=== PATIENT | male | born 1950 | race Caucasian/White ===

== ENCOUNTER → 2017-07-06 | Outpatient (REF) | payer MEDICARE ==
[2017-07-06 14:24] LABS: ADD MORPHOLOGY? YES; BASO # 0.1 K/mm3 (0.0-0.2); BASO % 1.6 % (0.0-1.0); EOS # 0.1 K/mm3 (0.0-0.50); EOS % 1.5 % (0.0-3.0); LARGE UNSTAINED CELL # 0.2 K/mm3 (0.0-0.4); LARGE UNSTAINED CELL % 4.5 % (0.0-4.0); LYMPH # 2.3 K/mm3 (1.5-4.5); LYMPH % 39.7 % (24.0-44.0); MEAN CORPUSCULAR HEMOGLOBIN 37.7 pg (27.0-33.0); MEAN CORPUSCULAR HGB CONC 32.7 g/dl (32.0-36.5); MEAN CORPUSCULAR VOLUME 115.3 fl (80.0-96.0); MONO # 0.3 K/mm3 (0.0-0.8); MONO % 5.7 % (0.0-5.0); NEUTROPHILS # 2.5 K/mm3 (1.8-7.7); NEUTROPHILS % 47.1 % (36.0-66.0); PLATELET COUNT, AUTOMATED 112 k/mm3 (150-450); WHITE BLOOD COUNT 5.3 K/mm3 (4.0-10.0)
[2017-07-06 14:26] LABS: FOLATE > 24.0 NG/ML; VITAMIN B12 LEVEL 1307 PG/ML
[2017-07-06 15:20] LABS: ERYTHROCYTE SEDIMENTATION RATE 33 mm/hr (0-20)
[2017-07-06 15:33] LABS: ANISOCYTOSIS 1+
[2017-07-06 15:47] LABS: ALBUMIN 2.9 GM/DL (3.2-5.2); ALBUMIN/GLOBULIN RATIO 0.67 (1.00-1.93); ALKALINE PHOSPHATASE 135 U/L (45-117); ALT/SGPT 40 U/L (12-78); ANION GAP 14 MEQ/L (8-16); AST/SGOT 63 U/L (15-37); BILIRUBIN,TOTAL 4.3 MG/DL (0.2-1.0); BLOOD UREA NITROGEN 12 MG/DL (7-18); CALCIUM LEVEL 8.8 MG/DL (8.8-10.2); CARBON DIOXIDE LEVEL 23 MEQ/L (21-32); CHLORIDE LEVEL 105 MEQ/L (98-107); CREATININE FOR GFR 0.88 MG/DL (0.70-1.30); GLOMERULAR FILTRATION RATE > 60.0 (>49); GLUCOSE, FASTING 188 MG/DL (80-110); POTASSIUM SERUM 3.8 MEQ/L (3.5-5.1); SODIUM LEVEL 142 MEQ/L (136-145); TOTAL PROTEIN 7.2 GM/DL (6.4-8.2)
[2017-07-08 12:02] LABS: ALBUMIN 3.28 GM/DL (3.29-5.55); ALBUMIN % 45.5 % (55.8-66.1); GAMMA GLOBULIN % 29.1 % (11.1-18.8)
[2017-07-09 08:07] LABS: SJOGREN'S ANTI SS-A <0.2 AI (0.0-0.9); SJOGREN'S ANTI SS-B <0.2 AI (0.0-0.9); VITAMIN E LEVEL 22.2 mg/L (5.3-17.5)
== END ==
LOC: M LABNEURO 13:12
PROVIDERS: ATTEND Psychiatry & Neurology Neurology
DX: R25.1 Tremor, unspecified (principal); R41.0 Disorientation, unspecified

== ENCOUNTER 2020-03-05 20:23 | Inpatient (IN) | payer MEDICARE, MEDICAID ==
[~2020-03-05] VITALS: Ht 190.5 cm; Wt 102.5 kg
[2020-03-05] MEDS ORDERED: ACETAMINOPHEN TAB 650MG DOSE (2X325MG) PO PRN (20:45)
[2020-03-05] MEDS ORDERED: MOM 30ML SUSPENSION UDC PO PRN (20:45)
[2020-03-05] MEDS ORDERED: MORPHINE 2 MG/ML 1ML VIAL (J2270) IV PRN (21:00)
[2020-03-05] MEDS ORDERED: traMADol 50 MG TAB PO PRN (21:00)
[2020-03-05] MEDS ORDERED: metroNIDAZOLE 500 MG in IV 1 EA IV SCH (21:00)
[2020-03-05] MEDS ORDERED: cefTRIAXone SOD 1 GM in D5W MINI-BAG PLUS 50 ML IV SCH (21:00)
[2020-03-05 21:10] VITALS: BP 150/78
[2020-03-05] MEDS ORDERED: FURO20TA2 PO (21:33)
[2020-03-05] MEDS ORDERED: LOTR10CA PO (21:33)
[2020-03-05] MEDS ORDERED: XIFA550T PO (21:33)
[2020-03-05] MEDS ORDERED: CYCL-707 PO (21:33)
[2020-03-05] MEDS ORDERED: LACT10SO29 PO (21:33)
[2020-03-05] MEDS ORDERED: EZET10TA21 PO (21:33)
[2020-03-05] MEDS ORDERED: POTA10TA16 PO (21:33)
[2020-03-05] MEDS ORDERED: ESOM1CAP5 PO (21:33)
[2020-03-05] MEDS ORDERED: METO25TA4 PO (21:33)
[2020-03-05 21:54] LABS: BASO % 0.5 % (0.0-1.0); EOS % 0.4 % (0.0-3.0); HEMATOCRIT 35.9 % (42.0-52.0); HEMOGLOBIN 12.3 g/dl (13.5-17.5); LYMPH % 12.8 % (24.0-44.0); MEAN CORPUSCULAR HEMOGLOBIN 38.8 pg (27.0-33.0); MEAN CORPUSCULAR HGB CONC 34.3 g/dl (32.0-36.5); MEAN CORPUSCULAR VOLUME 113.2 fl (80.0-96.0); MONO % 11.9 % (0.0-5.0); NEUTROPHILS # 5.9 10^3/uL (1.5-8.5); NEUTROPHILS % 73.6 % (36.0-66.0); PLATELET COUNT, AUTOMATED 147 10^3/uL (150-450); RED BLOOD COUNT 3.17 10^6/uL (4.30-6.10)
[2020-03-05] MEDS: NS 1,000 ML IV SCH (22:02)
[2020-03-05 22:04] LABS: INR 2.45; PROTHROMBIN TIME 26.5 SECONDS (11.8-14.0)
[2020-03-05 22:13] LABS: ALBUMIN 2.5 GM/DL (3.2-5.2); ALT/SGPT 34 U/L (12-78); BILIRUBIN,TOTAL 8.4 MG/DL (0.2-1.0); BLOOD UREA NITROGEN 14 MG/DL (7-18); CALCIUM LEVEL 8.2 MG/DL (8.8-10.2); CARBON DIOXIDE LEVEL 25 MEQ/L (21-32); CHLORIDE LEVEL 107 MEQ/L (98-107); ETHYL ALCOHOL (ETHANOL) < 0.003 % (0.000-0.010); GLOMERULAR FILTRATION RATE > 60.0 (>49); GLUCOSE, FASTING 160 MG/DL (70-100); LIPASE 512 U/L (73-393); MAGNESIUM LEVEL 1.5 MG/DL (1.8-2.4); POTASSIUM SERUM 4.3 MEQ/L (3.5-5.1); SODIUM LEVEL 138 MEQ/L (136-145); TOTAL PROTEIN 6.1 GM/DL (6.4-8.2)
--- NOTE | 2020-03-05 23:23 | REPVR ---
PROCEDURE INFORMATION: Exam: US Duplex Left Lower Extremity Veins, Limited Exam date and time: 03/05/2020 11:12 PM Age: 70 years old Clinical indication: Edema, localized; Lower extremity, left; Additional info: Rule out dvt TECHNIQUE: Imaging protocol: Real-time Duplex ultrasound of the Left Lower Extremity with 2-D brown scale, color Doppler flow and spectral waveform analysis with image documentation. Limited exam focused on the left lower extremity veins. COMPARISON: No relevant prior studies available. FINDINGS: Left deep veins: Unremarkable. The common femoral, femoral, proximal profunda femoral and popliteal veins are patent without thrombus. Normal Doppler waveforms. Normal compressibility and/or augmentation response. Left superficial veins: Unremarkable. Saphenofemoral junction is patent without thrombus. Soft tissues: Unremarkable. IMPRESSION: No DVT of the left lower extremity. Electronically signed by: Paul Meyer On 03/05/2020 23:23:32 PM
[2020-03-05 23:31] LABS: BILIRUBIN,DIRECT 3.2 MG/DL (0.0-0.2)
[2020-03-05] MEDS: PIPERACILLIN/TAZOBACTAM SOD 3.375 GM in D5W MINI-BAG PLUS 50 ML IV SCH (23:57)
[2020-03-06] MEDS: MAG SULF 1GM/100ML (MAG RUN) 1 GM in IV 1 EA IV SCH ×3 (00:30→02:40)
[2020-03-06 02:31] LABS: HEMATOCRIT 31.2 % (42.0-52.0); HEMOGLOBIN 10.6 g/dl (13.5-17.5); MEAN CORPUSCULAR HEMOGLOBIN 38.8 pg (27.0-33.0); MEAN CORPUSCULAR VOLUME 114.3 fl (80.0-96.0); PLATELET COUNT, AUTOMATED 118 10^3/uL (150-450); RED BLOOD COUNT 2.73 10^6/uL (4.30-6.10); WHITE BLOOD COUNT 7.5 10^3/uL (4.0-10.0)
[2020-03-06 02:51] LABS: ALT/SGPT 29 U/L (12-78); BLOOD UREA NITROGEN 12 MG/DL (7-18); CALCIUM LEVEL 7.7 MG/DL (8.8-10.2); CARBON DIOXIDE LEVEL 27 MEQ/L (21-32); CHLORIDE LEVEL 108 MEQ/L (98-107); CREATININE FOR GFR 0.68 MG/DL (0.70-1.30); GLOMERULAR FILTRATION RATE > 60.0 (>49); GLUCOSE, FASTING 123 MG/DL (70-100); SODIUM LEVEL 141 MEQ/L (136-145); TOTAL PROTEIN 4.9 GM/DL (6.4-8.2)
--- NOTE | 2020-03-06 04:25 | HPEPDOC ---
General Date of Admission Mar 05, 2020 at 21:10 Date of Service: Mar 05, 2020 Attending Physician: DRE HARPER MD Chief Complaint The patient is a 70-year-old male admitted with a reason for visit of Choledocholithiasis, Pancreatitis. History of Present Illness HPI: This is a 70 yo M poor-historian, reported history of LIU cirrhosis diagnosed last year managed by PCP, chronically on Lactulose & Rifaximin. He is a direct transfer from [facility] for GI intervention for possible ERCP. He initially presented to [facility] for decreased appetite and constant dull abd pain worse on the right flank, nonradiating, without aggravating or alleviating factors. His symptoms began 1 week ago and have been gradually worsening since then. He also noted increased jaundice and pale-appearing stools. He admits to having missed doses of medication, but unsure how long and which medications were missed. His labs at that time revealed lactate 4.5, ammonia 112, T. Bili 9.9, D. Bili 3.7, AST/ALT 51/36, Alk [id number], Lipase 720. WBC 7.3, nml H&H. In [facility], CT abd/pelvis revealed: Small amount of ascites. No hepatic mass or biliary dilatation. Gallstones and gallbladder distention without gallbladder wall thickening. Inflammatory changes adjacent to the rectum consistent with proctitis. Sigmoid colon diverticulosis without diverticulitis. 3.2 cm abdominal aortic aneurysm without aneurysmal rupture. In [facility], MRCP noted: mild CBD dilatation up to 9.7 mm, 4 mm calculus in the distal CBD. No intrahepatic biliary dilatation or hepatic mass or pancreatic mass or pancreatitis. Cirrhotic changes of liver with ascites. Gallstones and g allbladder distention without gallbladder wall thickening or pericholecystic inflammation. He received IVF & Ceftriaxone & Flagyl x1 doses, and thereafter directly admitted to [facility] for further care. On admission, he has no complaints besides continued right sided abd pain. Is noted to be resting comfortably in bed and hemodynamically stable. Has no other complaints. GI has been consulted; Dr. Katherine barajas will arrange for ERCP. Of note, he was reportedly at [facility] just a week prior after sustaining a mechanical fall at home and per the pt, imaging was negative for fracture and dislocation. Pt reports he was sent home to monitor the left leg, which no longer hurts him, but is noted to have significant bruising. He also reports he had urinary retention and was sent home with a Hernandez catheter to f/u outpatient with Urology, which he has not done yet. 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 Admits chills HEENT: Denies headache, dysphagia, odynophagia. Admits yellowing of eyes Skin: Denies any rashes or lesions. Admits jaundice Pulmonary: Denies dyspnea, cough, wheezing Cardiac: Denies chest pain, palpitations, orthopnea, PND, edema, lightheadedness GI: Denies vomiting or blood loss or constipation. Admits nausea, abdominal pain, harry-colored stools, dark urine. Admits decreased po intake & decreased appetite : Denies dysuria, hematuria. Admits to urinary retention with recently placed Hernandez MSK: Denies new pains or weakness Neurologic: Denies new numbness/tingling. Admits memory issues at baseline PHYSICAL: General exam: A&O x3, NAD, resting comfortably HEENT: NCAT, EOMI, scleral icterus present, dry mucous membranes, neck supple Cardiac: RRR, normal S1 & S2, 2/6 systolic murmur, no edema Respiratory: CTAB, good air exchange, no w/r/r Abdomen: soft, ND, normoactive bowel sounds, no appreciable masses or splenomegaly. Tender to palpation more periumbilically to the right. No rebound, guarding, rigidity Extremity: 2+ radial & dorsalis pedis pulses, calf tenderness LLE Skin: warm, dry, no visible rash. Jaundiced throughout. LLE with extensive bruising, skin discoloration, and nontender swelling from recent fall, pocket of swelling supra-medial to left ankle Msk: strength 5/5 x4, normal tone & nurse school strength Neuro: normal speech, no focal deficits. Slow to answer, but answers accurately LABORATORY DATA, MICROBIOLOGY: Please see below. ASSESSMENT AND PLAN: This is a 70-yo M direct admit from [facility] due to choledocolithiasis & pancreatitis, likely requiring ERCP intervention. 1. Jaundice 2/2 Choledocolithiasis - Gradually worsening last 1 week - Associated n/v abd pain, decreased appetite, harry-colored stools - At [facility]: T. Bili 9.9, D. Bili 3.7, AST/ALT 51/36, Alk [id number] - MRCP at [facility]: mild CBD dilatation up to 9.7 mm, 4 mm calculus in the distal CBD. - Hepatitis panel pending - GI Dr. Gu consulted, appreciate input: MRCP discussed. NPO after midnight for pending ERCP 03/06/20 2. Gallstone Pancreatitis - Lipase 720 at [facility] with abd pain - Pt tolerating po intake - IVF with monitoring lfuid status, suni reported hx of CHF - Pain control meds on board - Pending ERCP as above 3. Possible proctitis - Abdominal pain with chills and decreased appetite, nausea and vomiting - CT abdomen pelvis noted inflammatory changes adjacent to the rectum consistent with proctitis - Started on empiric Zosyn, s/p Ceftriaxone & Flagyl x1 at [facility] - Monitor I/O, bowel mvmts 4. Murmur - Pt denies cardiac hx or prior murmurs - Cardiac markers negative, EKG on admission in NSR in 70s with left axis deviation, no ST-T abnormalities - Hemodynamically stable with no decompensation on exam - Echo ordered 5. Social living situation - Per staff, pts sister had called to relay concerns about his girlfriend at home mismanaging his meds and sister having to call Adult Protective Services in past - PFS consulted 6. Recurrent falls with LLE redness / warmth - possible cellulitis - Mechanical fall last week, reportedly negative for fx or dislocation at [facility] - Left LE Doppler ordered r/u DVT. No wounds or drainage - MRSA PCR negative - c/w Antibiotics noted above - PT/OT, fall risk 7. Urinary retention - [facility] to f/u o/p with Urology, which he has not yet - due to infection risk, remove Hernandez and monitor I/O - bladder scan as needed & straight cath 8. Hypomag - Supplemented, monitor For the remainder of his chronic medical conditions mentioned above, home meds r esumed. Antihypertensives on hold given NPO on IVF, but BBlocker resumed for HR control. DVT prophylaxis: mechanical, heparin sc DISPOSITION: admit to hospital. GI consulted, pending ERCP. NPO after midnight. Home Medications Scheduled Amlodipine Besylate/Benazepril (Lotrel 10-20 mg Capsule) 1 Each Capsule, 1 CAP PO DAILY, (Reported) Cyclobenzaprine HCl (Cyclobenzaprine HCl) 10 Mg Tablet, 10 MG PO QHS, (Reported) Esomeprazole Magnesium (Esomeprazole Magnesium) 40 Mg Capsule.dr, 40 MG PO DAILY, (Reported) Ezetimibe (Ezetimibe) 10 Mg Tablet, 10 MG PO DAILY, (Reported) Furosemide (Furosemide) 20 Mg Tablet, 20 MG PO DAILY, (Reported) Lactulose (Lactulose) 10 Gm/15 Ml Solution, 30 ML PO TID, (Reported) Metoprolol Tartrate (Metoprolol Tartrate) 25 Mg Tablet, 25 MG PO BID, (Reported) Potassium Chloride (Potassium Chloride) 10 Meq Tab.er.prt, 20 MEQ PO DAILY, (Reported) Rifaximin (Xifaxan) 550 Mg Tablet, 550 MG PO BID, (Reported) Allergies Coded Allergies: No Known Allergies (Verified Allergy, Unknown, 03/05/20) A-FIB/CHADSVASC A-FIB History Current/History of A-Fib/PAF?: No Vital Signs Vital Signs Date Time Temp Pulse Resp B/P (MAP) Pulse Ox O2 Delivery O2 Flow Rate FiO2 03/05/20 21:10 97.8 90 19 150/78 (102) 94 Room Air Laboratory Data Labs 24H Laboratory Tests 2 03/05/20 21:29: Immature Granulocyte % (Auto) 0.8, Neutrophils (%) (Auto) 73.6H, Lymphocytes (%) (Auto) 12.8L, Monocytes (%) (Auto) 11.9H, Eosinophils (%) (Auto) 0.4, Basophils (%) (Auto) 0.5, Neutrophils # (Auto) 5.9, Lymphocytes # (Auto) 1.0L, Monocytes # (Auto) 1.0H, Eosinophils # (Auto) 0.0, Basophils # (Auto) 0.0, Nucleated Red Blood Cells % (auto) 0.0, Prothrombin Time 26.5H, Prothromb Time International R atio 2.45, Anion Gap 6L, Glomerular Filtration Rate > 60.0, Lactic Acid Level 3.1*H, Calcium Level 8.2L, Magnesium Level 1.5L, Total Bilirubin 8.4H, Direct Bilirubin 3.2H, Aspartate Amino Transf (AST/SGOT) 42H, Alanine Aminotransferase (ALT/SGPT) 34, Alkaline Phosphatase 148H, Total Protein 6.1L, Albumin 2.5L, Albumin/Globulin Ratio 0.69L, Lipase 512H, Ethyl Alcohol Level < 0.003 03/05/20 21:35: Ammonia 56H 03/05/20 22:34: Urine Color YEISON, Urine Appearance HAZY, Urine pH 6.0, Urine Specific [place] 1.034, Urine Protein 1+H, Urine Glucose (UA) NEGATIVE, Urine Ketones NEGATIVE, Urine Blood 3+H, Urine Nitrite NEGATIVE, Urine Bilirubin NEGATIVE, Urine U robilinogen 4.0H, Urine Leukocyte Esterase TRACEH, Urine WBC (Auto) 8H, Urine RBC (Auto) TNTCH, Urine Hyaline Casts (Auto) 0, Urine Bacteria (Auto) NEGATIVE, Urine Squamous Epithelial Cells 0, Urine Sperm (Auto) 03/06/20 00:35: Methicillin-Resist S.aureus DNA PCR NOT DETECTED 03/06/20 02:16: Nucleated Red Blood Cells % (auto) 0.0, Anion Gap 6L, Glomerular Filtration Rate > 60.0, Lactic Acid Followup at 4 Hours 2.2*H, Calcium Level 7.7L, Magnesium Level 1.8, Total Bilirubin 7.0H, Aspartate Amino Transf (AST/SGOT) 33, Alanine Aminotransferase (ALT/SGPT) 29, Alkaline Phosphatase 119H, Total Protein 4.9L, Albumin 2.0L, Albumin/Globulin Ratio 0.69L CBC/BMP Laboratory Tests 03/05/20 21:29 03/06/20 02:16 Microbiology Microbiology 03/05/20 Urine Culture, Received Pending 03/05/20 Blood Culture, Received Pending 03/05/20 Blood Culture, Received Pending Plan / VTE VTE Prophylaxis Ordered?: Yes GME ATTESTATION GME ATTESTATION My faculty preceptor for this patient encounter was physically present during the encounter and was fully available. All aspects of the patient interview, examination, medical decision making process, and medical care plan development were reviewed and approved by the faculty preceptor. The faculty preceptor is aware and concurs with the plan as stated in the body of this note and will attest to such by his/her cosignature. ATTENDING NOTE I, Dre Harper, have independently examined this patient and performed my own physical exam, as well as reviewed the documentation and edited where necessary. I have discussed in detail with the resident / student the findings and plan of treatment as documented by the resident / student and edited their note. I agree with their findings and treatment plan and have edited their documentation. I will continue to follow the patient during this hospital stay. JOSE WAGONER DO Mar 06, 2020 04:25 DRE HARPER MD Mar 06, 2020 05:22
[2020-03-06] MEDS: PIPERACILLIN/TAZOBACTAM SOD 3.375 GM in D5W MINI-BAG PLUS 50 ML IV SCH ×4 (05:09→23:05)
[2020-03-06] MEDS: NS 1,000 ML IV SCH ×4 (05:09→23:05)
[2020-03-06 06:00] VITALS: BP 139/67
[2020-03-06] MEDS: rifAXIMin 550 MG TAB (XIFAXAN) PO SCH ×2 (08:45→20:36)
[2020-03-06] MEDS: OMEPRAZOLE 20 MG CAP PO SCH (08:45)
[2020-03-06] MEDS: LACTULOSE 20 GM/30 ML SYRUP UD PO SCH ×3 (08:45→20:35)
[2020-03-06] MEDS: METOPROLOL TART 25 MG TABLET PO SCH ×2 (08:46→20:36)
[2020-03-06] MEDS ORDERED: HEPARIN SOD (PORCINE) 5000UNITS/ML VIAL (J1644 PER 1000UNITS) SQ SCH (09:00)
[2020-03-06 10:58] LABS: HEPATITIS A ANTIBODY IGM NEGATIVE (NEGATIVE); HEPATITIS B CORE ANTIBODY IGM NEGATIVE (NEGATIVE); HEPATITIS B SURFACE ANTIGEN NEGATIVE (NEGATIVE); HEPATITIS C VIRUS ABY INDEX 0.1 INDEX (<0.8)
[2020-03-06 14:00] VITALS: BP 137/77
[2020-03-06] MEDS ORDERED: ISOVUE-300 61% 50ML VIAL As Ordered ONE (14:31)
--- NOTE | 2020-03-06 14:45 | CR.PDOC ---
General Date of Consultation: Mar 06, 2020 Referring Provider: Gely Laughlin MD Attending Physician: RALPH SOLITARIO MD Consultation Primary physician/ hospitalist: -Dr. Laughlin Reason for consult: -Abnormal liver tests and MRI showing CBD stone. 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 He initially pres ented to [facility] for decreased appetite and constant dull abd pain worse on the right flank, nonradiating, without aggravating or alleviating factors. His symptoms began 1 week ago and have been gradually worsening since then. He also noted increased jaundice and pale-appearing stools. Patient was noted with abnormal liver tests and GI was consulted for the same. Patient reports having chronic liver disease and was following outside [facility] for routine care. Patient reports around few weeks ago he had a fall and was noted with bruising of the legs. Patient reports upper abdominal pain initially which completely resolved by the time of exam. Patient was reportedly seen in [facility] just a week prior after sustaining a mechanical fall at home and per the patient imaging was negative for fracture and dislocation. Patient reports he was sent home to monitor the left leg, which no longer hurts him, but is noted to have significant bruising.. Pertinent negative GI symptoms: Patient denies fever, sick contacts, recent travel, nausea, vomiting, diarrhea, loss of appetite, early satiety or unintentional weight loss. No history of hematemesis, melena or hematochezia. Patient reports regular bowel movements. Review of Systems: GI: as stated above CVS: No chest pain, No palpitations, No leg swelling. RS: No Shortness of breath, No Wheezing, no cough PURCHASING EXPEDITOR: No dizziness, No motor weakness, No sensory problems Hematology: No bruising, No gum bleeding, Musculoskeletal: No joint pain, ambulating well. Skin: No rash : No hematuria, No burning sensation of the urine ENT: No ear discharge/ pain, No dysphagia. Eyes: No photophobia. Jaundice Home medications: reviewed. Antithrombotic agents: -None Medical h/o: As above. Surgical h/o: None on abdomen. Social h/o: Alcohol: -Rarely drinks alcohol, smoking:. Denies, IVDA/ drugs:, Denies. Family h/o of GI cancers - None Prior Endoscopies: None in [facility] Prior GI evaluations: -None in [facility] Exam: Vitals: reviewed General: Alert and oriented x 3, not in distress HEENT: NO pallor, no icterus. Normal oropharynx, NO cervical lymph nodes. Chest: symmetric with bilateral clear air entry, CVS: S1, S2 heard, normal, no murmurs . Abdomen: non-distended, no surgical scars, soft, non-tender, no palpable masses, normal bowel sounds heard. Rectal exam: Patient refused / Deferred at this time in view of scheduled colonoscopy. Extremities: no pedal edema, pulses palpable. PURCHASING EXPEDITOR: no focal motor or sensory deficits. Moves all extremities Skin: no rash. Labs: reviewed. Acute viral hepatitis panel -negative Lipase 512 Prior imaging tests: In [facility], CT abd/pelvis revealed: Small amount of ascites. No hepatic mass or biliary dilatation. Gallstones and gallbladder distention without gallbladder wall thickening. Inflammatory changes adjacent to the rectum consistent with proctitis. Sigmoid colon diverticulosis without diverticulitis. 3.2 cm abdominal aortic aneurysm without aneurysmal rupture. In [facility], MRCP noted: mild CBD dilatation up to 9.7 mm, 4 mm calculus in the distal CBD. No intrahepatic biliary dilatation or hepatic mass or pancreatic mass or pancreatitis. Cirrhotic changes of liver with ascites. Gallstones and gallbladder distention without gallbladder wall thickening or pericholecystic inflammation Impression: - Abnormal liver tests with prior known Caceres cirrhosis/ hemachromatosis , with elevated lactic acid and elevated INR, prior hepatic encephalopathy -- Likely advanced liver disease from cirrhosis., less likely from CBD stone. - MRCP showing CBD stone -- needs further management. Recommendations: - Patient educated about the test results, possible differential diagnoses and All questions answered. - Clear liquid diet - Obtain Ultrasound abdomen with doppler to evaluate for liver cirrhosis and portal HTN - Consider empiric course of antibiotics for possible sepsis. - Will obtain prior Liver panel and INR results if available. - Resume all home medications. - Septic work up and treatment as per primary team. - Will schedule for ERCP based on the clinical course in 1-2 days.Will need correction of coagulopathy prior to ERCP. - The procedure, indications, risks (bleeding, perforation, infection, hypotension, respiratory depression, allergy, need for endotracheal intubation, surgery, colostomy, cardiac arrest, even ), benefits, limitations (e.g., missing a lesion), and all other alternatives (including no intervention) were explained to the patient who understood and agreed for the procedure. Plan of care discussed with patient and primary team. Patient verbalized understanding and agreed with the plan. Vital Signs/I&O Vital Signs Date Time Temp Pulse Resp B/P (MAP) Pulse Ox O2 Delivery O2 Flow Rate FiO2 03/06/20 08:46 80 130/72 03/06/20 06:00 96.9 18 100 Room Air I&O- Last 24 Hours up to 6 AM 03/06/20 05:59 Intake Total 900 ml Output Total 875 ml Balance 25 ml Laboratory Data Labs 24H Laboratory Tests 2 03/05/20 21:29: Immature Granulocyte % (Auto) 0.8, Neutrophils (%) (Auto) 73.6H, Lymphocytes (%) (Auto) 12.8L, Monocytes (%) (Auto) 11.9H, Eosinophils (%) (Auto) 0.4, Basophils (%) (Auto) 0.5, Neutrophils # (Auto) 5.9, Lymphocytes # (Auto) 1.0L, Monocytes # (Auto) 1.0H, Eosinophils # (Auto) 0.0, Basophils # (Auto) 0.0, Nucleated Red Blood Cells % (auto) 0.0, Prothrombin Time 26.5H, Prothromb Time International Ratio 2.45, Anion Gap 6L, Glomerular Filtration Rate > 60.0, Lactic Acid Level 3.1*H, Calcium Level 8.2L, Magnesium Level 1.5L, Total Bilirubin 8.4H, Direct Bilirubin 3.2H, Aspartate Amino Transf (AST/SGOT) 42H, Alanine Aminotransferase (ALT/SGPT) 34, Alkaline Phosphatase 148H, Total Protein 6.1L, Albumin 2.5L, A lbumin/Globulin Ratio 0.69L, Lipase 512H, Ethyl Alcohol Level < 0.003, Hepatitis A IgM Antibody NEGATIVE, Hepatitis B Surface Antigen NEGATIVE, Hepatitis B Core IgM Antibody NEGATIVE, Hepatitis C Antibody Index 0.1 03/05/20 21:35: Ammonia 56H 03/05/20 22:34: Urine Color YEISON, Urine Appearance HAZY, Urine pH 6.0, Urine Specific [place] 1.034, Urine Protein 1+H, Urine Glucose (UA) NEGATIVE, Urine Ketones NEGATIVE, Urine Blood 3+H, Urine Nitrite NEGATIVE, Urine Bilirubin NEGATIVE, Urine Urobilinogen 4.0H, Urine Leukocyte Esterase TRACEH, Urine WBC (Auto) 8H, Urine RBC (Auto) TNTCH, Urine Hyaline Casts (Auto) 0, Urine Bacteria (Auto) NEGATIVE, Urine Squamous Epithelial Cells 0, Urine Sperm (Auto) 03/06/20 00:35: Methicillin-Resist S.aureus DNA PCR NOT DETECTED 03/06/20 02:16: Nucleated Red Blood Cells % (auto) 0.0, Anion Gap 6L, Glomerular Filtration Rate > 60.0, Lactic Acid Followup at 4 Hours 2.2*H, Calcium Level 7.7L, Magnesium Level 1.8, Total Bilirubin 7.0H, Aspartate Amino Transf (AST/SGOT) 33, Alanine Aminotransferase (ALT/SGPT) 29, Alkaline Phosphatase 119H, Total Protein 4.9L, Albumin 2.0L, Albumin/Globulin Ratio 0.69L 03/06/20 08:19: Lactic Acid Level 2.6*H 03/06/20 12:41: Lactic Acid Followup at 4 Hours 2.5*H CBC/BMP Laboratory Tests 03/05/20 21:29 03/06/20 02:16 Microbiology Microbiology 03/05/20 Urine Culture, Received Pending 03/05/20 Blood Culture, Received Pending 03/05/20 Blood Culture, Received Pending Allergies Coded Allergies: No Known Allergies (Verified Allergy, Unknown, 03/05/20) Home Medications Scheduled Amlodipine Besylate/Benazepril (Lotrel 10-20 mg Capsule) 1 Each Capsule, 1 CAP PO DAILY, (Reported) Cyclobenzaprine HCl (Cyclobenzaprine HCl) 10 Mg Tablet, 10 MG PO QHS, (Reported) Esomeprazole Magnesium (Esomeprazole Magnesium) 40 Mg Capsule.dr, 40 MG PO DAILY, (Reported) Ezetimibe (Ezetimibe) 10 Mg Tablet, 10 MG PO DAILY, (Reported) Furosemide (Furosemide) 20 Mg Tablet, 20 MG PO DAILY, (Reported) Lactulose (Lactulose) 10 Gm/15 Ml Solution, 30 ML PO TID, (Reported) Metoprolol Tartrate (Metoprolol Tartrate) 25 Mg Tablet, 25 MG PO BID, (Reported) Potassium Chloride (Potassium Chloride) 10 Meq Tab.er.prt, 20 MEQ PO DAILY, (Reported) Rifaximin (Xifaxan) 550 Mg Tablet, 550 MG PO BID, (Reported) RALPH SOLITARIO MD Mar 06, 2020 14:45
--- NOTE | 2020-03-06 16:21 | REP ---
RIGHT UPPER QUADRANT ULTRASOUND: Real-time sonographic evaluation of right upper quadrant performed. Gallbladder is distended measuring 11.7 x 5.3 x 5.6 cm. There is intraluminal sludge and there are multiple small stones. Gallbladder wall appears mildly thickened. There is dilatation of the common bile duct approximately 12 mm in diameter. The distal common bile duct could not be visualized. There is diffuse heterogeneous echotexture of the liver without a focal mass. Pancreas could not be visualized. Right kidney demonstrates normal size, 14.2 cm in length with no hydronephrosis. There is mild dilatation of the mid to distal abdominal aorta with maximum AP diameter 3.1 cm. Prominent venous structures are seen in the region of the stomach and pancreas, likely representing varices. There is mild perihepatic ascites. IMPRESSION: Distended gallbladder containing sludge and stones, with mild wall thickening. Dilatation of the common bile duct 12 mm. I cannot exclude cholecystitis. Distal common bile duct could not be visualized. Coarsened heterogeneous echotexture suggests possible cirrhosis. In addition, there appear to be varices in the region of the stomach and pancreas. There is mild perihepatic ascites. Electronically Signed by Adrian Caldera MD 03/06/2020 04:27 P
[2020-03-06] MEDS: THIAMINE 100 MG TAB PO SCH (18:26)
[2020-03-06] MEDS: FOLIC ACID 1 MG TAB PO SCH (18:26)
[2020-03-06] MEDS ORDERED: PHYTONADIONE 2.5 MG **1/2 TAB PO ONE (19:00)
--- NOTE | 2020-03-06 19:58 | ECGEPIP ---
[facility] Test Date: 2020-03-06 Pat Name: RAFAEL HECK Department: Room: [place] [address] Gender: Male Garageman: TAMMY : 1950 Requested By: JOSE WAGONER Order Number: [id number] Reading MD: Carlos Avilez Measurements Intervals [place] Rate: 89 P: 33 MT: 138 QRS: 46 QRSD: 102 T: -10 QT: 354 QTc: 432 Interpretive Statements SINUS RHYTHM WITH SINUS ARRHYTHMIA Nonspecific T wave abnormality Comparison tracing not on file Electronically Signed on 03-06-2020 19:58:11 EDT by Carlos Avilez
[2020-03-06] MEDS: CYCLOBENZAPRINE 10MG TABLET PO SCH (20:35)
--- NOTE | 2020-03-06 21:30 | IPNPDOC ---
Date Seen The patient was seen on 03/06/20. Progress Note SUBJECTIVE: Improved abd pain, lactic acid remains elevated on fluids. Dr. uG to take for ERCP tomorrow if INR comes down enough. Giving Vitamin K tonight. Patient denies n/v/d. US abd ordered. OBJECTIVE General exam: A&O x3, NAD, resting comfortably HEENT: NCAT, EOMI, scleral icterus present, dry mucous membranes, neck supple Cardiac: RRR, normal S1 & S2, 2/6 systolic murmur, no edema Respiratory: CTAB, good air exchange, no w/r/r Abdomen: soft, ND, normoactive bowel sounds, no appreciable masses or splenomegaly. Tender to palpation more periumbilically to the right, mild. No re bound, guarding, rigidity Extremity: 2+ radial & dorsalis pedis pulses, calf tenderness LLE Skin: warm, dry, no visible rash. Jaundiced throughout. LLE with extensive bruising, skin discoloration, and nontender swelling from recent fall, pocket of swelling supra-medial to left ankle Msk: strength 5/5 x4, normal tone & lead generation representative strength Neuro: normal speech, no focal deficits. Slow to answer, but answers accurately LABORATORY DATA: Please see below IMAGING: US abdomen: Distended gallbladder containing sludge and stones, with mild wall thickening. Dilatation of the common bile duct 12 mm. I cannot exclude cholecystitis. Distal common bile duct could not be visualized. Coarsened heterogeneous echotexture suggests possible cirrhosis. In addition, there appear to be varices in the region of the stomach and pancreas. There is mild perihepatic ascites. LLE US: No DVT ASSESSMENT: 70 y/o M admitted for choledocolethiasis, gallstone pancreatitis. 1. CACERES cirrhosis. Hx of hemachromatosis , incr lactic acid and INR. Likely advanced liver disease from cirrhosis, less likely from CBD stone as per GI. US above. MRCP showed stone. ERCP for the AM if INR comes down appropriately. S/p vitamin K administration, f/u PT/INR/PTT in the AM. 2. Gallstone Pancreatitis likely secondary to choledocolitiathiasis. Tolerating PO fluids well. Pain controlled. ERCP in AM. 3. Possible proctitis. Improved abdominal pain. LA still elevated ;however WBC wnl. CT abdomen pelvis noted inflammatory changes adjacent to the rectum consistent with proctitis. C/w empiric Zosyn, s/p Monitor I/O, bowel mvmts 4. Murmur. F/U ECHO. 5. LLE cellulitis s/p fall. Mechanical fall last week, reportedly negative for fx or dislocation at [facility]. No wounds or drainage. C/w Antibiotics noted above. PT/OT, fall risk. Request records to confirm additional imaging is not needed. 7. Urinary retention. Removed llamas 03/05/20. Voiding well. Bladder scan as needed & straight cath 8. DVT prophylaxis: SCDs DISPOSITION: admit to hospital. GI consulted, pending ERCP. NPO after midnight. - Abnormal liver tests with prior known Caceres cirrhosis/ hemachromatosis , with elevated lactic acid and elevated INR, prior hepatic encephalopathy -- Likely advanced liver disease from cirrhosis., less likely from CBD stone. - MRCP showing CBD stone -- needs further management. Recommendations: - Patient educated about the test results, possible differential diagnoses and All questions answered. - Clear liquid diet - Obtain Ultrasound abdomen with doppler to evaluate for liver cirrhosis and portal HTN - Consider empiric course of antibiotics for possible sepsis. - Will obtain prior Liver panel and INR results if available. - Resume all home medications. - Septic work up and treatment as per primary team. - Will schedule for ERCP based on the clinical course in 1-2 days.Will need correction of coagulopathy prior to ERCP. - The procedure, indications, risks (bleeding, perforation, infection, hypotension, respiratory depression, allergy, need for endotracheal intubation, surgery, colostomy, cardiac arrest, even ), benefits, limitations (e.g., missing a lesion), and all other alternatives (including no intervention) were explained to the patient who understood and agreed for the procedure. Plan of care discussed with patient and primary team. Patient verbalized understanding and agreed with the plan. VS, I&O, 24H, Fishbone Vital Signs/I&O Vital Signs Date Time Temp Pulse Resp B/P (MAP) Pulse Ox O2 Delivery O2 Flow Rate FiO2 03/06/20 20:36 88 130/84 03/06/20 14:00 97.0 17 95 Room Air I&O- Last 24 Hours up to 6 AM 03/06/20 05:59 Intake Total 900 ml Output Total 875 ml Balance 25 ml Laboratory Data 24H LABS Laboratory Tests 2 03/05/20 21:35: Ammonia 56H 03/05/20 22:34: Urine Color YEISON, Urine Appearance HAZY, Urine pH 6.0, Urine Specific [place] 1.034, Urine Protein 1+H, Urine Glucose (UA) NEGATIVE, Urine Ketones NEGATIVE, Urine Blood 3+H, Urine Nitrite NEGATIVE, Urine Bilirubin NEGATIVE, Urine Urobilinogen 4.0H, Urine Leukocyte Esterase TRACEH, Urine WBC (Auto) 8H, Urine RBC (Auto) TNTCH, Urine Hyaline Casts (Auto) 0, Urine Bacteria (Auto) NEGATIVE, Urine Squamous Epithelial Cells 0, Urine Sperm (Auto) 03/06/20 00:35: Methicillin-Resist S.aureus DNA PCR NOT DETECTED 03/06/20 02:16: Nucleated Red Blood Cells % (auto) 0.0, Anion Gap 6L, Glomerular Filtration Rate > 60.0, Lactic Acid Followup at 4 Hours 2.2*H, Calcium Level 7.7L, Magnesium Level 1.8, Total Bilirubin 7.0H, Aspartate Amino Transf (AST/SGOT) 33, Alanine Aminotransferase (ALT/SGPT) 29, Alkaline Phosphatase 119H, Total Protein 4.9L, Albumin 2.0L, Albumin/Globulin Ratio 0.69L 03/06/20 08:19: Lactic Acid Level 2.6*H 03/06/20 12:41: Lactic Acid Followup at 4 Hours 2.5*H 03/06/20 18:29: Folate 10.7 CBC/BMP Laboratory Tests 03/06/20 02:16 Microbiology Microbiology 03/05/20 Urine Culture, Received Pending 03/05/20 Blood Culture, Received Pending 03/05/20 Blood Culture, Received Pending Current Medications Current Medications Medications (Trade) Dose Ordered Sig/Saad Route PRN Reason Start Time Stop Time Status Last Admin Dose Admin Acetaminophen (Tylenol Tab) 650 mg Q4H PRN PO PAIN OR FEVER 03/05/20 20:45 Ceftriaxone Sodium 1 gm/ Dextrose 50 ml @ 100 mls/hr Q24H IV 03/05/20 21:00 03/05/20 21:06 DC Cyclobenzaprine HCl (Flexeril) 10 mg QHS PO 03/06/20 21:00 03/06/20 20:35 Folic Acid (Folic Acid) 1 mg DAILY PO 03/06/20 09:00 03/06/20 18:26 Heparin Sodium (Porcine) (Heparin) 5,000 units Q12H SQ 03/06/20 09:00 03/06/20 18:22 DC Home Med (Med Rec Complete!) ASDIRECTED XX 03/05/20 21:45 03/05/20 21:38 DC Lactulose (Cephulac) 30 ml TID PO 03/06/20 09:00 03/06/20 20:35 Magnesium Hydroxide (Milk Of Magnesia) 30 ml DAILY PRN PO CONSTIPATION 03/05/20 20:45 Magnesium Sulfate/ Dextrose 1 gm/IV Miscellaneous Supplies 100 ml @ 100 mls/hr 0030,0130,2330 IV 03/05/20 23:30 03/06/20 04:00 DC 03/06/20 02:40 Metoprolol Tartrate (Lopressor) 25 mg BID PO 03/06/20 09:00 03/06/20 20:36 Metronidazole 500 mg/IV Miscellaneous Supplies 100 ml @ 100 mls/hr Q8H IV 03/05/20 21:00 03/05/20 21:06 DC Morphine Sulfate (Morphine Sulfate Inj) 2 mg Q6H PRN IV PAIN 03/05/20 21:00 Omeprazole (PriLOSEC) 40 mg DAILY PO 03/06/20 09:00 03/06/20 08:45 Piperacillin Sod/ Tazobactam Sod 3.375 gm/Dextrose 50 ml @ 50 mls/hr Q6H IV 03/05/20 23:00 03/06/20 17:12 Rifaximin (Xifaxan) 550 mg BID PO 03/06/20 09:00 03/06/20 20:36 Sodium Chloride 1,000 ml @ 100 mls/hr Q10H IV 03/05/20 21:00 03/06/20 05:09 Thiamine HCl (Thiamine HCl) 100 mg DAILY PO 03/06/20 09:00 03/06/20 18:26 Tramadol HCl (Ultram) 50 mg Q6HP PRN PO MODERATE PAIN (PS 5-7) 03/05/20 21:00 Allergies Coded Allergies: No Known Allergies (Verified Allergy, Unknown, 03/05/20) Gely Laughlin MD Mar 06, 2020 21:30
[2020-03-06 22:00] VITALS: BP 128/85
--- NOTE | 2020-03-06 23:19 | ECHO ---
DATE OF PROCEDURE: 03/06/2020 REFERRING PROVIDER: Dr. Ward Peña REASON FOR THE STUDY: Heart murmur. PATIENT LOCATION: Room 4218. 2D MEASUREMENTS: IVS: 1.2 cm LV: 4.7 cm LVPW: 1.2 cm LA: 4.6 cm Aorta: 3.4 cm RV: 4.5 cm IVC: 2.0 cm DOPPLER MEASUREMENTS: Peak velocity across the aortic valve: 1.6 m/s Peak velocity across the LVOT: 1.1 m/s Maximum tricuspid valve velocity: 2.5 m/s 2D COMMENTS: 1. Normal left ventricular size, wall thickness with an estimated global left ventricular systolic ejection fraction of 55-60%. 2. Mildly enlarged left atrium. The right atrium may be minimally enlarged in limited views. The right ventricle appeared to be mildly enlarged, but the right ventricular free wall seems to be jamie well. 3. The atrial septum appeared to be normal without evidence of defect or shunt. 4. Normal aortic root. 5. Trace pericardial effusion noted; no evidence of cardiac tamponade. 6. Mildly calcified aortic valve with normal leaflet excursion. Normal mitral valve and tricuspid valve. The pulmonic valve and proximal pulmonary artery branches were not well visualized. 7. The inferior vena cava appeared to be mildly enlarged in limited views. DOPPLER: It detects trace mitral regurgitation and trace tricuspid regurgitation. The calculated pulmonary artery systolic pressure varies between 30 to 40 mmHg. Assessment of the left ventricular diastolic function was limited by artifact. IMPRESSION: 1. Low normal global left ventricular systolic function. 2. Mildly enlarged left atrium with trace mitral regurgitation. The dilated left atrium is most likely related to some underlying left ventricular diastolic dysfunction. 3. Trace tricuspid regurgitation with probably mild pulmonary hypertension. The right heart chambers appeared to be mildly enlarged in limited views. 4. The inferior vena cava was mildly enlarged; central venous pressure might be elevated. 5. Trace pericardial effusion noted; no evidence of cardiac tamponade. MTDD
[2020-03-07] MEDS: PIPERACILLIN/TAZOBACTAM SOD 3.375 GM in D5W MINI-BAG PLUS 50 ML IV SCH (04:16)
[2020-03-07 06:00] VITALS: BP 120/72
[2020-03-07 06:37] LABS: HEMATOCRIT 30.4 % (42.0-52.0); HEMOGLOBIN 10.4 g/dl (13.5-17.5); MEAN CORPUSCULAR HEMOGLOBIN 38.8 pg (27.0-33.0); MEAN CORPUSCULAR HGB CONC 34.2 g/dl (32.0-36.5); MEAN CORPUSCULAR VOLUME 113.4 fl (80.0-96.0); PLATELET COUNT, AUTOMATED 107 10^3/uL (150-450); RED BLOOD COUNT 2.68 10^6/uL (4.30-6.10); WHITE BLOOD COUNT 6.1 10^3/uL (4.0-10.0)
[2020-03-07 06:46] LABS: INR 2.63
[2020-03-07 06:47] LABS: PARTIAL THROMBOPLASTIN TIME 46.8 SECONDS (25.0-38.4)
[2020-03-07 07:00] LABS: ALBUMIN 2.1 GM/DL (3.2-5.2); ALT/SGPT 28 U/L (12-78); BILIRUBIN,TOTAL 7.4 MG/DL (0.2-1.0); BLOOD UREA NITROGEN 8 MG/DL (7-18); CALCIUM LEVEL 7.7 MG/DL (8.8-10.2); CARBON DIOXIDE LEVEL 27 MEQ/L (21-32); CHLORIDE LEVEL 108 MEQ/L (98-107); GLOMERULAR FILTRATION RATE > 60.0 (>49); GLUCOSE, FASTING 80 MG/DL (70-100); POTASSIUM SERUM 3.9 MEQ/L (3.5-5.1); SODIUM LEVEL 140 MEQ/L (136-145); TOTAL PROTEIN 5.2 GM/DL (6.4-8.2)
[2020-03-07] MEDS: NS 1,000 ML IV SCH ×2 (08:39→18:39)
[2020-03-07] MEDS ORDERED: ISOVUE-370 76% 100ML VIAL As Ordered ONE (08:51)
[2020-03-07] MEDS ORDERED: PHYTONADIONE 5 MG TAB PO ONE (09:00)
[2020-03-07] MEDS ORDERED: VANCOMYCIN HCL 1,000 MG, VIAL MATE ADAPTER 1 EACH in D5W 250 ML IV ONE (09:00)
[2020-03-07] MEDS: THIAMINE 100 MG TAB PO SCH (09:49)
[2020-03-07] MEDS: LACTULOSE 20 GM/30 ML SYRUP UD PO SCH ×3 (09:49→20:56)
[2020-03-07] MEDS: OMEPRAZOLE 20 MG CAP PO SCH (09:49)
[2020-03-07] MEDS: rifAXIMin 550 MG TAB (XIFAXAN) PO SCH ×2 (09:49→20:57)
[2020-03-07] MEDS: FOLIC ACID 1 MG TAB PO SCH (09:49)
[2020-03-07] MEDS: METOPROLOL TART 25 MG TABLET PO SCH ×2 (09:52→20:57)
[2020-03-07] MEDS ORDERED: VANCOMYCIN HCL 750 MG, VIAL MATE ADAPTER 1 EACH in D5W 250 ML IV ONE (10:00)
--- NOTE | 2020-03-07 10:24 | REP ---
REASON FOR EXAM: Pain and swelling. There are no prior examinations for comparison. There is no evidence of a fracture. There is no evidence of a destructive osseous lesion. There is no evidence of a soft tissue mass. There is a small knee joint effusion. There is no gross hip joint effusion. There are degenerative change seen involving the knee and hip. There is a slight focal enlargement of the distal aspect of the mid portion of the superficial femoral vein and possibly seen with a subtle degree of decreased vessel opacification compared to the remainder of the superficial femoral vein. IMPRESSION: 1. There is no osseous abnormality. 2. There is a knee joint effusion. 3. Hip and knee degenerative changes. 4. Subtle finding involving the distal aspect of the superficial femoral vein. Note is made of a negative deep vein ultrasound examination of the left thigh, which was obtained on 03/05/2020. Certainly, this subtle finding could represent an acute partial venous thrombus. Consider repeat ultrasound. I will restate that this finding is extremely subtle. Electronically Signed by Santy Harris DO 03/07/2020 10:50 A
--- NOTE | 2020-03-07 10:31 | REP ---
REASON FOR EXAM: Pain and swelling. PRIORS: None. There is no evidence of a fracture. There is no evidence of a destructive osseous lesion. There are degenerative changes seen involving the knee and ankle. There is a slight knee joint effusion. In the deep subcutanea anteromedially, there is an 8.8 x 6.6 x 2.4 cm sized somewhat but not completely well-circumscribed structure which has Hounsfield unit density readings of + 60 to +70 consistent with blood. This collection compresses the anteromedial aspect of the posterior compartment and is extracompartmental. IMPRESSION: There is a relatively large soft tissue hematoma in the lower leg as described above. Etiology is likely trauma, however, it should be correlated clinically with appropriate followup. Electronically Signed by Santy Harris DO 03/07/2020 10:50 A
--- NOTE | 2020-03-07 10:33 | REP ---
REASON FOR EXAM: Swelling. The views taken are non-orthogonal which limits the exam. In addition, not all of the foot was imaged in any plane. The bones appear somewhat demineralized. There is no evidence of an acute fracture. There is no evidence of significant soft tissue swelling or mass. There does appear to be some thickening of the skin over the lateral ankle and hind foot region. This cannot be well-evaluated with CT. IMPRESSION: No CT evidence of a significant abnormality. Findings and limitations as described above. Electronically Signed by Santy Harris DO 03/07/2020 10:50 A
[2020-03-07] MEDS ORDERED: PIPERACILLIN/TAZOBACTAM SOD 3.375 GM in D5W MINI-BAG PLUS 50 ML IV SCH ×2 (12:00→17:00)
[2020-03-07 14:00] VITALS: BP 124/70
[2020-03-07] MEDS: VANCOMYCIN HCL 500 MG in D5W MINI-BAG PLUS 100 ML IV SCH (17:39)
[2020-03-07] MEDS: VANCOMYCIN HCL 750 MG, VIAL MATE ADAPTER 1 EACH in D5W 250 ML IV SCH (18:45)
--- NOTE | 2020-03-07 19:43 | IPNPDOC ---
Date Seen The patient was seen on 03/07/20. Progress Note SUBJECTIVE: CT femur could not completely rule out distal sup. fem. vein thrombus, ordering repeat US as suggestd. Large hematoma in LLE, will f/u with ortho from outside facility as we do not have on-call currently. Improved abd pain, could not take for ERCP due to elevated LA despite Vitamin K. ERCP cancelled and GI is thinking since abd pain significantly improved, no need for further intervention at this time anyway. Suggested to give another dose of Vitamin K this AM and it was given prior to diagnosis above. Patient denies n/v/d. US abd ordered. OBJECTIVE General exam: A&O x3, NAD, resting comfortably HEENT: NCAT, EOMI, scleral icterus present, dry mucous membranes, neck supple Cardiac: RRR, normal S1 & S2, 2/6 systolic murmur, no edema Respiratory: CTAB, good air exchange, no w/r/r Abdomen: soft, ND, normoactive bowel sounds, no appreciable masses or splenomegaly. Nontender. No rebound, guarding, rigidity Extremity: 2+ radial & dorsalis pedis pulses, calf tenderness LLE, tense calf and gonzales and warm to touch, tender. PT pulse strong bilaterally. Skin: warm, dry, no visible rash. Jaundiced throughout. 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 Slow to answer, but answers accurately LABORATORY DATA: Please see below IMAGING: CT tib/fib with contrast: In the deep subcutanea anteromedially, there is an 8.8 x 6.6 x 2.4 cm sized somewhat but not completely well-circumscribed structure which has Hounsfield unit density readings of + 60 to +70 consistent with blood. This collection compresses the anteromedial aspect of the posterior compartment and is extracompartmental. CT foot w/ contrast: No CT evidence of a significant abnormality. CT femur w/ contrast: 1. There is no osseous abnormality. 2. There is a knee joint effusion. 3. Hip and knee degenerative changes. 4. Subtle finding involving the distal aspect of the superficial femoral vein. Note is made of a negative deep vein ultrasound examination of the left thigh, which was obtained on 03/05/2020. Certainly, this subtle finding could represent an acute partial venous thrombus. Consider repeat ultrasound. I will restate that this finding is extremely subtle. Prior LLE US: No DVT ASSESSMENT: 70 y/o M admitted for choledocolethiasis, gallstone pancreatitis, LLE cellulitis, proctitis with LE hematoma. 1. LIU cirrhosis. Hx of hemachromatosis, INR higher despite Vit K. Likely advanced liver disease from cirrhosis. S/p vitamin K administration, f/u PT/INR/PTT in the AM. GI following. 2. Gallstone Pancreatitis likely secondary to choledocolitiathiasis. Tolerating PO fluids well. Pain controlled. No longer doing ERCP. Continue to monitor. 3. Proctitis. CT abdomen pelvis noted inflammatory changes adjacent to the rectum consistent with proctitis. Completed two days of Zosyn, transitioning to doxycycline PO until 03/11/20 (complete 7 days treatment) . Pain overall improving, monitor I/O, bowel movements 4. LLE cellulitis s/p fall. Warmth, tenderness developed gradually after mechanical fall last week. CT LLE above. C/w vancomycin, PT/OT, fall risk. 5. LLE hematoma. F/u CK, no ortho reproduction technician here but will try outside facility to further discuss. Pulses strong in that leg and no concern for compartment syndrome at this time. F/u CBC and monitor for swelling increasing (possible incr hematoma size) due to increased INR. 6. Questionable thrombus, left superficial femoral vein. Recommending repeating doppler, f/u results. Currently already naturally AC with INR elevated 2/2 to LIU. Do not add anything else at this time. If doppler +, will need to consider Sulema filter placement. 7. Urinary retention. Removed llamas 03/05/20. Voiding well. Bladder scan as needed & straight cath 8. DVT px. naturally anticoagulated, INR elevated 2/2 to LIU. NO SCDs or compression stocking on DISPOSITION: admit to hospital. GI consulted, pending ERCP. NPO after midnight. VS, I&O, 24H, Fishbone Vital Signs/I&O Vital Signs Date Time Temp Pulse Resp B/P (MAP) Pulse Ox O2 Delivery O2 Flow Rate FiO2 03/07/20 14:00 98.3 70 19 124/70 (88) 98 Room Air I&O- Last 24 Hours up to 6 AM 03/07/20 06:00 Intake Total 1450 ml Output Total 1925 ml Balance -475 ml Laboratory Data 24H LABS Laboratory Tests 2 03/07/20 06:24: Nucleated Red Blood Cells % (auto) 0.0, Prothrombin Time 28.0H, Prothromb Time International Ratio 2.63, Activated Partial Thromboplast Time 46.8H, Anion Gap 5L, Glomerular Filtration Rate > 60.0, Lactic Acid Level 2.2*H, Calcium Level 7.7L, Total Bilirubin 7.4H, Aspartate Amino Transf (AST/SGOT) 45H, Alanine Aminotransferase (ALT/SGPT) 28, Alkaline Phosphatase 120H, Total Protein 5.2L, Albumin 2.1L, Albumin/Globulin Ratio 0.68L 03/07/20 10:40: Lactic Acid Followup at 4 Hours 2.1*H CBC/BMP Laboratory Tests 03/07/20 06:24 Microbiology Microbiology 03/05/20 Urine Culture, Received Pending 03/05/20 Blood Culture - Preliminary, Resulted No growth after 24 hours . All specim... 03/05/20 Blood Culture - Preliminary, Resulted No growth after 24 hours . All specim... Current Medications Current Medications Medications (Trade) Dose Ordered Sig/Saad Route PRN Reason Start Time Stop Time Status Last Admin Dose Admin Acetaminophen (Tylenol Tab) 650 mg Q4H PRN PO PAIN OR FEVER 03/05/20 20:45 Ceftriaxone Sodium 1 gm/ Dextrose 50 ml @ 100 mls/hr Q24H IV 03/05/20 21:00 03/05/20 21:06 DC Cyclobenzaprine HCl (Flexeril) 10 mg QHS PO 03/06/20 21:00 03/06/20 20:35 Folic Acid (Folic Acid) 1 mg DAILY PO 03/06/20 09:00 03/07/20 09:49 Heparin Sodium (Porcine) (Heparin) 5,000 units Q12H SQ 03/06/20 09:00 03/06/20 18:22 DC Home Med (Med Rec Complete!) ASDIRECTED XX 03/05/20 21:45 03/05/20 21:38 DC Lactulose (Cephulac) 30 ml TID PO 03/06/20 09:00 03/07/20 16:40 Magnesium Hydroxide (Milk Of Magnesia) 30 ml DAILY PRN PO CONSTIPATION 03/05/20 20:45 Magnesium Sulfate/ Dextrose 1 gm/IV Miscellaneous Supplies 100 ml @ 100 mls/hr 0030,0130,2330 IV 03/05/20 23:30 03/06/20 04:00 DC 03/06/20 02:40 Metoprolol Tartrate (Lopressor) 25 mg BID PO 03/06/20 09:00 03/07/20 09:52 Metronidazole 500 mg/IV Miscellaneous Supplies 100 ml @ 100 mls/hr Q8H IV 03/05/20 21:00 03/05/20 21:06 DC Morphine Sulfate (Morphine Sulfate Inj) 2 mg Q6H PRN IV PAIN 03/05/20 21:00 Omeprazole (PriLOSEC) 40 mg DAILY PO 03/06/20 09:00 03/07/20 09:49 Piperacillin Sod/ Tazobactam Sod 3.375 gm/Dextrose 50 ml @ 50 mls/hr Q6H IV 03/05/20 23:00 03/07/20 08:50 DC 03/07/20 04:16 Piperacillin Sod/ Tazobactam Sod 3.375 gm/Dextrose 50 ml @ 50 mls/hr Q6H IV 03/07/20 12:00 03/07/20 15:45 DC 03/07/20 13:30 Piperacillin Sod/ Tazobactam Sod 3.375 gm/Dextrose 50 ml @ 50 mls/hr Q6H IV 03/07/20 17:00 03/07/20 16:40 Rifaximin (Xifaxan) 550 mg BID PO 03/06/20 09:00 03/07/20 09:49 Sodium Chloride 1,000 ml @ 100 mls/hr Q10H IV 03/05/20 21:00 03/06/20 23:05 Thiamine HCl (Thiamine HCl) 100 mg DAILY PO 03/06/20 09:00 03/07/20 09:49 Tramadol HCl (Ultram) 50 mg Q6HP PRN PO MODERATE PAIN (PS 5-7) 03/05/20 21:00 Vancomycin HCl 500 mg/Dextrose 110 ml @ 110 mls/hr Q8H IV 03/07/20 18:00 03/07/20 17:39 Vancomycin HCl 750 mg/IV Miscellaneous Supplies 1 each/ Dextrose 275 ml @ 275 mls/hr Q8H IV 03/07/20 19:00 03/07/20 18:45 Allergies Coded Allergies: No Known Allergies (Verified Allergy, Unknown, 03/05/20) Gely Laughlin MD Mar 07, 2020 19:43
[2020-03-07] MEDS: DOXYCYCLINE HYCLATE 100MG TABLET PO SCH (20:57)
[2020-03-07] MEDS: CYCLOBENZAPRINE 10MG TABLET PO SCH (20:57)
[2020-03-07 22:00] VITALS: BP 122/69
--- NOTE | 2020-03-07 22:15 | REPVR ---
PROCEDURE INFORMATION: Exam: US Duplex Left Lower Extremity Veins, Limited Exam date and time: 03/07/2020 10:06 PM Age: 70 years old Clinical indication: Pain; Leg, lower; Left; Additional info: Cannot R/O thrombus in superficial fem vein distally TECHNIQUE: Imaging protocol: Real-time Duplex ultrasound of the Left Lower Extremity with 2-D brown scale, color Doppler flow and spectral waveform analysis with image documentation. Limited exam focused on the left lower extremity veins. COMPARISON: US Duplex, Ext,LOWER veins,unilat LEFT 03/05/2020 11:09 PM FINDINGS: Left deep veins: Unremarkable. The common femoral, femoral, proximal profunda femoral and popliteal veins are patent without thrombus. Normal Doppler waveforms. Normal compressibility and/or augmentation response. Left superficial veins: Unremarkable. Saphenofemoral junction is patent without thrombus. Soft tissues: Unremarkable. IMPRESSION: No evidence of deep vein thrombosis. Electronically signed by: Elise Mohamud On 03/07/2020 22:15:16 PM
[2020-03-08] MEDS: VANCOMYCIN HCL 500 MG in D5W MINI-BAG PLUS 100 ML IV SCH ×2 (02:14→10:00)
[2020-03-08] MEDS: VANCOMYCIN HCL 750 MG, VIAL MATE ADAPTER 1 EACH in D5W 250 ML IV SCH (03:16)
[2020-03-08 06:00] VITALS: BP 120/73
[2020-03-08 06:34] LABS: HEMATOCRIT 29.9 % (42.0-52.0); HEMOGLOBIN 10.4 g/dl (13.5-17.5); MEAN CORPUSCULAR HEMOGLOBIN 39.2 pg (27.0-33.0); MEAN CORPUSCULAR HGB CONC 34.8 g/dl (32.0-36.5); MEAN CORPUSCULAR VOLUME 112.8 fl (80.0-96.0); PLATELET COUNT, AUTOMATED 100 10^3/uL (150-450); RED BLOOD COUNT 2.65 10^6/uL (4.30-6.10); WHITE BLOOD COUNT 5.1 10^3/uL (4.0-10.0)
[2020-03-08 07:02] LABS: ALBUMIN 1.9 GM/DL (3.2-5.2); ALT/SGPT 30 U/L (12-78); BILIRUBIN,TOTAL 6.4 MG/DL (0.2-1.0); BLOOD UREA NITROGEN 6 MG/DL (7-18); CALCIUM LEVEL 7.5 MG/DL (8.8-10.2); CARBON DIOXIDE LEVEL 27 MEQ/L (21-32); CHLORIDE LEVEL 108 MEQ/L (98-107); CPK CREATINE PHOSPHOKINASE 53 U/L (39-308); CREATININE FOR GFR 0.58 MG/DL (0.70-1.30); GLOMERULAR FILTRATION RATE > 60.0 (>49); GLUCOSE, FASTING 96 MG/DL (70-100); POTASSIUM SERUM 3.8 MEQ/L (3.5-5.1); SODIUM LEVEL 142 MEQ/L (136-145)
[2020-03-08] MEDS: LACTULOSE 20 GM/30 ML SYRUP UD PO SCH ×3 (08:28→20:50)
[2020-03-08] MEDS: rifAXIMin 550 MG TAB (XIFAXAN) PO SCH ×2 (08:28→20:50)
[2020-03-08] MEDS: FOLIC ACID 1 MG TAB PO SCH (08:28)
[2020-03-08] MEDS: DOXYCYCLINE HYCLATE 100MG TABLET PO SCH ×2 (08:28→20:50)
[2020-03-08] MEDS: METOPROLOL TART 25 MG TABLET PO SCH ×2 (08:29→20:50)
[2020-03-08] MEDS: THIAMINE 100 MG TAB PO SCH (08:29)
[2020-03-08] MEDS: OMEPRAZOLE 20 MG CAP PO SCH (08:29)
[2020-03-08] MEDS ORDERED: NS 1,000 ML IV SCH (08:30)
[2020-03-08] MEDS: LACTOBACILLUS ACIDOPHILUS CAP (BACID) PO SCH ×2 (08:30→17:26)
[2020-03-08 09:12] LABS: INR 2.18; PROTHROMBIN TIME 24.1 SECONDS (11.8-14.0)
[2020-03-08 14:00] VITALS: BP 113/71
[2020-03-08] MEDS ORDERED: PHYTONADIONE 5 MG TAB PO ONE (18:00)
--- NOTE | 2020-03-08 18:06 | IPNPDOC ---
Date Seen The patient was seen on 03/08/20. Progress Note SUBJECTIVE: US LLE neg for DVT. Stopped Vancomycin, kept doxycycline as LLE looks markedly improved. Large hematoma in LLE likely cause of increased T bili per GI, No ERCP scheduled as abdominal pain resolved. Updated brother per patient's request. Participating well with PT, overall improving slowly. Patient denies n/v/d. OBJECTIVE General exam: A&O x3, NAD, resting comfortably HEENT: NCAT, EOMI, scleral icterus present, dry mucous membranes, neck supple Cardiac: RRR, normal S1 & S2, 2/6 systolic murmur, no edema Respiratory: CTAB, good air exchange, no w/r/r Abdomen: soft, ND, normoactive bowel sounds, no appreciable masses or splenomegaly. Nontender. No rebound, guarding, rigidity Extremity: 2+ radial & dorsalis pedis pulses, calf tenderness LLE- warmth and erythema much improved. PT pulse strong bilaterally. Skin: warm, dry, no visible rash. Jaundiced throughout. 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 Slow to answer, but answers accurately LABORATORY DATA: Please see below ACTIVE MEDICATIONS: Please see below IMAGING: Doppler LLE: No DVT ASSESSMENT: 70 y/o M admitted for choledocolethiasis, gallstone pancreatitis, LLE cellulitis, acute proctitis with LE hematoma. PLAN: 1. LLE cellulitis s/p fall. Warmth, tenderness much improved. Stopped Vancomycin, c/w doxycycline. 2. LLE hematoma. CK wnl, INR improved further, tenseness decreased, pulses strong in that leg and no concern for compartment syndrome. F/u CBC and monitor for swelling increasing (possible incr hematoma size) due to increased INR. Will give another dose Vitamin K today. 3. Gallstone pancreatitis likely secondary to choledocolitiathiasis. No pain, on diet. No longer doing ERCP. Continue to monitor. 4. Proctitis. Completed two days of Zosyn. C/w doxycycline PO until 03/11/20 (complete 7 days treatment). Pain resolved, monitor I/O, bowel movements 5. LIU cirrhosis. Hx of hemachromatosis, INR improved. T bili not suspected to be elevated from liver disease but hematoma. Likely advanced liver disease from cirrhosis. S/p vitamin K administration, f/u PT/INR/PTT in the AM. GI following. 6. Urinary retention. Removed llamas 03/05/20, voiding well. 7. DVT px. INR >2 from cirrhosis. NO SCDs or compression stocking on LLE. DISPOSITION: Admitted under inpatient status. Plan is to discharge home with outpatient PT/OT when medical issues improve further. He currently lives with his girlfriend, his brother was updated today by myself. VS, I&O, 24H, Fishbone Vital Signs/I&O Vital Signs Date Time Temp Pulse Resp B/P (MAP) Pulse Ox O2 Delivery O2 Flow Rate FiO2 03/08/20 08:29 73 126/75 03/08/20 06:00 98.3 20 98 Room Air I&O- Last 24 Hours up to 6 AM 03/08/20 06:00 Intake Total 1675 ml Output Total 3300 ml Balance -1625 ml Laboratory Data 24H LABS Laboratory Tests 2 03/07/20 20:10: Total Creatine Kinase 59 03/08/20 06:20: Total Creatine Kinase 53, Nucleated Red Blood Cells % (auto) 0.0, Anion Gap 7L, Glomerular Filtration Rate > 60.0, Lactic Acid Level 2.2*H, Calcium Level 7.5L, Total Bilirubin 6.4H, Aspartate Amino Transf (AST/SGOT) 45H, Alanine Aminotransferase (ALT/SGPT) 30, Alkaline Phosphatase 118H, Total Protein 5.0L, Albumin 1.9L, Albumin/Globulin Ratio 0.61L 03/08/20 08:26: Prothrombin Time 24.1H, Prothromb Time International Ratio 2.18, Vancomycin Level Trough 15.3 03/08/20 10:10: Ammonia 24 03/08/20 10:45: Lactic Acid Followup at 4 Hours 2.9*H CBC/BMP Laboratory Tests 03/08/20 06:20 Microbiology Microbiology 03/05/20 Urine Culture - Final, Complete Enterococcus Faecalis 03/05/20 Blood Culture - Preliminary, Resulted No Growth after 48 hours. All Specime... 03/05/20 Blood Culture - Preliminary, Resulted No Growth after 48 hours. All Specime... Current Medications Current Medications Medications (Trade) Dose Ordered Sig/Saad Route PRN Reason Start Time Stop Time Status Last Admin Dose Admin Acetaminophen (Tylenol Tab) 650 mg Q4H PRN PO PAIN OR FEVER 03/05/20 20:45 Ceftriaxone Sodium 1 gm/ Dextrose 50 ml @ 100 mls/hr Q24H IV 03/05/20 21:00 03/05/20 21:06 DC Cyclobenzaprine HCl (Flexeril) 10 mg QHS PO 03/06/20 21:00 03/07/20 20:57 Doxycycline Hyclate (Vibramycin) 100 mg BID PO 03/07/20 21:00 03/11/20 23:00 03/08/20 08:28 Folic Acid (Folic Acid) 1 mg DAILY PO 03/06/20 09:00 03/08/20 08:28 Heparin Sodium (Porcine) (Heparin) 5,000 units Q12H SQ 03/06/20 09:00 03/06/20 18:22 DC Home Med (Med Rec Complete!) ASDIRECTED XX 03/05/20 21:45 03/05/20 21:38 DC Lactobacillus Acidophilus (Bacid) 1 ea BIDWM PO 03/08/20 08:00 03/08/20 17:26 Lactulose (Cephulac) 30 ml TID PO 03/06/20 09:00 03/08/20 15:28 Magnesium Hydroxide (Milk Of Magnesia) 30 ml DAILY PRN PO CONSTIPATION 03/05/20 20:45 Magnesium Sulfate/ Dextrose 1 gm/IV Miscellaneous Supplies 100 ml @ 100 mls/hr 0030,0130,2330 IV 03/05/20 23:30 03/06/20 04:00 DC 03/06/20 02:40 Metoprolol Tartrate (Lopressor) 25 mg BID PO 03/06/20 09:00 03/08/20 08:29 Metronidazole 500 mg/IV Miscellaneous Supplies 100 ml @ 100 mls/hr Q8H IV 03/05/20 21:00 03/05/20 21:06 DC Morphine Sulfate (Morphine Sulfate Inj) 2 mg Q6H PRN IV PAIN 03/05/20 21:00 Omeprazole (PriLOSEC) 40 mg DAILY PO 03/06/20 09:00 03/08/20 08:29 Piperacillin Sod/ Tazobactam Sod 3.375 gm/Dextrose 50 ml @ 50 mls/hr Q6H IV 03/05/20 23:00 03/07/20 08:50 DC 03/07/20 04:16 Piperacillin Sod/ Tazobactam Sod 3.375 gm/Dextrose 50 ml @ 50 mls/hr Q6H IV 03/07/20 12:00 03/07/20 15:45 DC 03/07/20 13:30 Piperacillin Sod/ Tazobactam Sod 3.375 gm/Dextrose 50 ml @ 50 mls/hr Q6H IV 03/07/20 17:00 03/07/20 19:55 DC 03/07/20 16:40 Rifaximin (Xifaxan) 550 mg BID PO 03/06/20 09:00 03/08/20 08:28 Sodium Chloride 1,000 ml @ 60 mls/hr [id number] IV 03/05/20 21:00 03/08/20 08:08 DC 03/06/20 23:05 Sodium Chloride 1,000 ml @ 60 mls/hr [id number] IV 03/08/20 08:30 03/08/20 09:42 DC Thiamine HCl (Thiamine HCl) 100 mg DAILY PO 03/06/20 09:00 03/08/20 08:29 Tramadol HCl (Ultram) 50 mg Q6HP PRN PO MODERATE PAIN (PS 5-7) 03/05/20 21:00 Vancomycin HCl 500 mg/Dextrose 110 ml @ 110 mls/hr Q8H IV 03/07/20 18:00 03/08/20 10:15 DC 03/08/20 10:00 Vancomycin HCl 750 mg/IV Miscellaneous Supplies 1 each/ Dextrose 275 ml @ 275 mls/hr Q8H IV 03/07/20 19:00 03/08/20 10:15 DC 03/08/20 03:16 Allergies Coded Allergies: No Known Allergies (Verified Allergy, Unknown, 03/05/20) Gely Laughlin MD Mar 08, 2020 18:06
[2020-03-08] MEDS: CYCLOBENZAPRINE 10MG TABLET PO SCH (20:50)
[2020-03-08 22:00] VITALS: BP 126/74
[2020-03-09 06:00] VITALS: BP 126/74
[2020-03-09 06:41] LABS: HEMATOCRIT 30.3 % (42.0-52.0); HEMOGLOBIN 10.4 g/dl (13.5-17.5); MEAN CORPUSCULAR HEMOGLOBIN 38.7 pg (27.0-33.0); MEAN CORPUSCULAR HGB CONC 34.3 g/dl (32.0-36.5); MEAN CORPUSCULAR VOLUME 112.6 fl (80.0-96.0); RED BLOOD COUNT 2.69 10^6/uL (4.30-6.10); WHITE BLOOD COUNT 5.2 10^3/uL (4.0-10.0)
[2020-03-09 06:52] LABS: INR 2.25; PROTHROMBIN TIME 24.7 SECONDS (11.8-14.0)
[2020-03-09 07:03] LABS: ALT/SGPT 30 U/L (12-78); BLOOD UREA NITROGEN 6 MG/DL (7-18); CALCIUM LEVEL 7.6 MG/DL (8.8-10.2); CARBON DIOXIDE LEVEL 27 MEQ/L (21-32); CHLORIDE LEVEL 108 MEQ/L (98-107); CREATININE FOR GFR 0.56 MG/DL (0.70-1.30); GLOMERULAR FILTRATION RATE > 60.0 (>49); GLUCOSE, FASTING 80 MG/DL (70-100); LIPASE 80 U/L (73-393); POTASSIUM SERUM 3.8 MEQ/L (3.5-5.1); SODIUM LEVEL 142 MEQ/L (136-145); TOTAL PROTEIN 5.1 GM/DL (6.4-8.2)
[2020-03-09 07:19] LABS: PLATELET COUNT, AUTOMATED 99 10^3/uL (150-450)
[2020-03-09 08:00] VITALS: BP 132/74
[2020-03-09] MEDS: LACTULOSE 20 GM/30 ML SYRUP UD PO SCH ×3 (08:24→20:37)
[2020-03-09] MEDS: rifAXIMin 550 MG TAB (XIFAXAN) PO SCH ×2 (08:24→20:38)
[2020-03-09] MEDS: OMEPRAZOLE 20 MG CAP PO SCH (08:24)
[2020-03-09] MEDS: THIAMINE 100 MG TAB PO SCH (08:24)
[2020-03-09] MEDS: DOXYCYCLINE HYCLATE 100MG TABLET PO SCH ×2 (08:24→20:38)
[2020-03-09] MEDS: FOLIC ACID 1 MG TAB PO SCH (08:24)
[2020-03-09] MEDS: LACTOBACILLUS ACIDOPHILUS CAP (BACID) PO SCH ×2 (08:24→17:06)
[2020-03-09] MEDS: METOPROLOL TART 25 MG TABLET PO SCH ×2 (08:26→20:38)
[2020-03-09 14:00] VITALS: BP 134/66
--- NOTE | 2020-03-09 14:32 | IPNPDOC ---
Date Seen The patient was seen on 03/09/20. Progress Note SUBJECTIVE: Labs continue to improve slowly, no abdominal or rectal pain. Improving left lower ext pain, redness and swelling. Physical therapy notes state he continues to require cues with ambulating, unsafe to go home at this time. Will need home health set up prior to discharge. Overall improving slowly. Patient denies n/v/d, shortness of breath, fevers or chills. . OBJECTIVE General exam: A&O x3, NAD, resting comfortably HEENT: NCAT, EOMI, scleral icterus present, dry mucous membranes, neck supple Cardiac: RRR, normal S1 & S2, 2/6 systolic murmur, no edema Respiratory: CTAB, good air exchange, no w/r/r Abdomen: soft, ND, normoactive bowel sounds, no appreciable masses or splenomeg carrol. Nontender. No rebound, guarding, rigidity Extremity: 2+ radial & dorsalis pedis pulses, tenderness LLE- warmth and erythema further decreased. PT pulse strong bilaterally. Skin: warm, dry, no visible rash. Jaundice improving slowly. 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 Slow to answer, but answers accurately LABORATORY DATA: Please see below ACTIVE MEDICATIONS: Please see below IMAGING: No new imaging. ASSESSMENT: 70 y/o M admitted for choledocolethiasis, gallstone pancreatitis, LLE cellulitis, acute proctitis with LE hematoma. PLAN: 1. LLE cellulitis s/p fall. Warmth, tenderness improving. C/w doxycycline (Day 3) 2. LLE hematoma. CK wnl, INR 2.25 (naturally anticoagulated due to liver cirrhosis). Monitor for swelling increasing (possible incr hematoma size) due to increased INR. 3. Gallstone pancreatitis likely secondary to choledocolitiathiasis. No pain, on diet. No longer doing ERCP. Continue to monitor. 4. Proctitis. Completed two days of Zosyn. C/w doxycycline PO until 03/11/20 (complete 7 days treatment). Pain resolved, monitor I/O, bowel movements 5. Physical deconditioning 2/2 to problem #1, #2. PT/OT says not safe for home yet, will need home services at discharge. 6. LIU cirrhosis, advanced. Hx of hemachromatosis, INR still elevated. T bili not suspected to be elevated from liver disease but hematoma. GI following. 7. Urinary retention. Removed llamas 03/05/20, voiding well. 8. Thombocytopenia, chronic. likely 2/2 to cirrhosis. PLTs 99, no new signs of acute bleeding . F/u daily CBC 9. Lactic acidosis. Resolved 10. DVT px. INR >2 from cirrhosis. NO SCDs or compression stocking on LLE. DISPOSITION: Admitted under inpatient status. Plan is to discharge home with home services when medical issues improve further. He currently lives with his girlfriend. VS, I&O, 24H, [place] Vital Signs/I&O Vital Signs Date Time Temp Pulse Resp B/P (MAP) Pulse Ox O2 Delivery O2 Flow Rate FiO2 03/09/20 08:26 76 130/74 03/09/20 06:00 98.0 18 95 Room Air I&O- Last 24 Hours up to 6 AM 03/09/20 06:00 Intake Total 990 ml Output Total 2300 ml Balance -1310 ml Laboratory Data 24H LABS Laboratory Tests 2 03/09/20 06:11: Nucleated Red Blood Cells % (auto) 0.0, Immature Platelet Fraction 2.1, Prothrombin Time 24.7H, Prothromb Time International Ratio 2.25, Anion Gap 7L, Glomerular Filtration Rate > 60.0, Lactic Acid Level 1.9, Calcium Level 7.6L, Total Bilirubin 6.0H, Aspartate Amino Transf (AST/SGOT) 44H, Alanine A minotransferase (ALT/SGPT) 30, Alkaline Phosphatase 121H, Total Protein 5.1L, Albumin 2.0L, Albumin/Globulin Ratio 0.65L, Lipase 80 CBC/BMP Laboratory Tests 03/09/20 06:11 Microbiology Microbiology 03/05/20 Urine Culture - Final, Complete Enterococcus Faecalis 03/05/20 Blood Culture - Preliminary, Resulted No Growth after 72 hours. All specime... 03/05/20 Blood Culture - Preliminary, Resulted No Growth after 72 hours. All specime... Current Medications Current Medications Medications (Trade) Dose Ordered Sig/Saad Route PRN Reason Start Time Stop Time Status Last Admin Dose Admin Acetaminophen (Tylenol Tab) 650 mg Q4H PRN PO PAIN OR FEVER 03/05/20 20:45 Ceftriaxone Sodium 1 gm/ Dextrose 50 ml @ 100 mls/hr Q24H IV 03/05/20 21:00 03/05/20 21:06 DC Cyclobenzaprine HCl (Flexeril) 10 mg QHS PO 03/06/20 21:00 03/08/20 20:50 Doxycycline Hyclate (Vibramycin) 100 mg BID PO 03/07/20 21:00 03/11/20 23:00 03/09/20 08:24 Folic Acid (Folic Acid) 1 mg DAILY PO 03/06/20 09:00 03/09/20 08:24 Heparin Sodium (Porcine) (Heparin) 5,000 units Q12H SQ 03/06/20 09:00 03/06/20 18:22 DC Home Med (Med Rec Complete!) ASDIRECTED XX 03/05/20 21:45 03/05/20 21:38 DC Lactobacillus Acidophilus (Bacid) 1 ea BIDWM PO 03/08/20 08:00 03/09/20 08:24 Lactulose (Cephulac) 30 ml TID PO 03/06/20 09:00 03/09/20 08:24 Magnesium Hydroxide (Milk Of Magnesia) 30 ml DAILY PRN PO CONSTIPATION 03/05/20 20:45 Magnesium Sulfate/ Dextrose 1 gm/IV Miscellaneous Supplies 100 ml @ 100 mls/hr 0030,0130,2330 IV 03/05/20 23:30 03/06/20 04:00 DC 03/06/20 02:40 Metoprolol Tartrate (Lopressor) 25 mg BID PO 03/06/20 09:00 03/09/20 08:26 Metronidazole 500 mg/IV Miscellaneous Supplies 100 ml @ 100 mls/hr Q8H IV 03/05/20 21:00 03/05/20 21:06 DC Morphine Sulfate (Morphine Sulfate Inj) 2 mg Q6H PRN IV PAIN 03/05/20 21:00 Omeprazole (PriLOSEC) 40 mg DAILY PO 03/06/20 09:00 03/09/20 08:24 Piperacillin Sod/ Tazobactam Sod 3.375 gm/Dextrose 50 ml @ 50 mls/hr Q6H IV 03/05/20 23:00 03/07/20 08:50 DC 03/07/20 04:16 Piperacillin Sod/ Tazobactam Sod 3.375 gm/Dextrose 50 ml @ 50 mls/hr Q6H IV 03/07/20 12:00 03/07/20 15:45 DC 03/07/20 13:30 Piperacillin Sod/ Tazobactam Sod 3.375 gm/Dextrose 50 ml @ 50 mls/hr Q6H IV 03/07/20 17:00 03/07/20 19:55 DC 03/07/20 16:40 Rifaximin (Xifaxan) 550 mg BID PO 03/06/20 09:00 03/09/20 08:24 Sodium Chloride 1,000 ml @ 60 mls/hr [id number] IV 03/05/20 21:00 03/08/20 08:08 DC 03/06/20 23:05 Sodium Chloride 1,000 ml @ 60 mls/hr [id number] IV 03/08/20 08:30 03/08/20 09:42 DC Thiamine HCl (Thiamine HCl) 100 mg DAILY PO 03/06/20 09:00 03/09/20 08:24 Tramadol HCl (Ultram) 50 mg Q6HP PRN PO MODERATE PAIN (PS 5-7) 03/05/20 21:00 Vancomycin HCl 500 mg/Dextrose 110 ml @ 110 mls/hr Q8H IV 03/07/20 18:00 03/08/20 10:15 DC 03/08/20 10:00 Vancomycin HCl 750 mg/IV Miscellaneous Supplies 1 each/ Dextrose 275 ml @ 275 mls/hr Q8H IV 03/07/20 19:00 03/08/20 10:15 DC 03/08/20 03:16 Allergies Coded Allergies: No Known Allergies (Verified Allergy, Unknown, 03/05/20) Gely Laughlin MD Mar 09, 2020 14:32
[2020-03-09] MEDS: CYCLOBENZAPRINE 10MG TABLET PO SCH (20:37)
[2020-03-09 22:00] VITALS: BP 126/71
[2020-03-10 06:00] VITALS: BP 128/72
[2020-03-10 06:56] LABS: HEMATOCRIT 30.9 % (42.0-52.0); HEMOGLOBIN 10.5 g/dl (13.5-17.5); MEAN CORPUSCULAR HEMOGLOBIN 38.3 pg (27.0-33.0); MEAN CORPUSCULAR VOLUME 112.8 fl (80.0-96.0); RED BLOOD COUNT 2.74 10^6/uL (4.30-6.10); WHITE BLOOD COUNT 5.6 10^3/uL (4.0-10.0)
[2020-03-10 07:19] LABS: ALBUMIN 2.1 GM/DL (3.2-5.2); ALT/SGPT 29 U/L (12-78); BILIRUBIN,TOTAL 6.3 MG/DL (0.2-1.0); BLOOD UREA NITROGEN 7 MG/DL (7-18); CALCIUM LEVEL 7.7 MG/DL (8.8-10.2); CARBON DIOXIDE LEVEL 28 MEQ/L (21-32); CHLORIDE LEVEL 107 MEQ/L (98-107); CREATININE FOR GFR 0.55 MG/DL (0.70-1.30); GLOMERULAR FILTRATION RATE > 60.0 (>49); GLUCOSE, FASTING 82 MG/DL (70-100); SODIUM LEVEL 142 MEQ/L (136-145); TOTAL PROTEIN 4.9 GM/DL (6.4-8.2)
[2020-03-10 07:32] LABS: PLATELET COUNT, AUTOMATED 88 10^3/uL (150-450)
[2020-03-10] MEDS: rifAXIMin 550 MG TAB (XIFAXAN) PO SCH ×2 (10:05→20:26)
[2020-03-10] MEDS: OMEPRAZOLE 20 MG CAP PO SCH (10:05)
[2020-03-10] MEDS: LACTULOSE 20 GM/30 ML SYRUP UD PO SCH ×3 (10:05→20:25)
[2020-03-10] MEDS: FOLIC ACID 1 MG TAB PO SCH (10:05)
[2020-03-10] MEDS: DOXYCYCLINE HYCLATE 100MG TABLET PO SCH ×2 (10:05→20:27)
[2020-03-10] MEDS: LACTOBACILLUS ACIDOPHILUS CAP (BACID) PO SCH ×2 (10:05→18:06)
[2020-03-10] MEDS: THIAMINE 100 MG TAB PO SCH (10:05)
[2020-03-10] MEDS: METOPROLOL TART 25 MG TABLET PO SCH ×2 (10:07→20:25)
--- NOTE | 2020-03-10 11:06 | REP ---
RIGHT UPPER QUADRANT ULTRASOUND: Real-time sonographic evaluation of the right upper quadrant performed and compared to a prior study of 03/06/2020. Gallbladder is mildly distended containing stones and sludge. There is gallbladder wall thickening up to 6 mm. Common bile duct is not dilated measuring 6 mm in diameter. Previously, common bile duct measured 12 mm. Once again, there are diffuse coarsened heterogeneous echotexture of the liver as seen on prior study. Pancreas could not be visualized due to overlying bowel gas. Right kidney demonstrates no hydronephrosis with normal size 13.8 cm in length. No free fluid is seen. IMPRESSION: Mild distention of the gallbladder, which contains stones and sludge. Gallbladder wall thickening 6 mm. No free fluid. No evidence of biliary dilatation. Common bile duct measures 6 mm, previously 12 mm. Electronically Signed by Adrian Caldera MD 03/10/2020 09:53 P
[2020-03-10 14:00] VITALS: BP 126/72
--- NOTE | 2020-03-10 15:33 | IPNPDOC ---
Date Seen The patient was seen on 03/10/20. Progress Note SUBJECTIVE: Labs stable, T. bili still elevated. Repeat US abdomen showed decreased CBD dilation to 6mm from 12 mm. Patient likely passed stone and has no abdominal pain. Overall improving slowly, possible d/c after weekend. Patient denies n/v/d, shortness of breath, fevers or chills. . OBJECTIVE General exam: A&O x3, NAD, resting comfortably HEENT: NCAT, EOMI, scleral icterus present, dry mucous membranes, neck supple Cardiac: RRR, normal S1 & S2, 2/6 systolic murmur, no edema Respiratory: CTAB, good air exchange, no w/r/r Abdomen: soft, ND, normoactive bowel sounds, no appreciable masses or splenomegaly. Nontender. No rebound, guarding, rigidity Extremity: 2+ radial & dorsalis pedis pulses, tenderness LLE- warmth and erythema further decreased. PT pulse strong bilaterally. Skin: warm, dry, no visible rash. Jaundice improving slowly. 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 Slow to answer, but answers accurately LABORATORY DATA: Please see below ACTIVE MEDICATIONS: Please see below IMAGING: US abd: Mild distention of the gallbladder, which contains stones and sludge. Gallbladder wall thickening 6 mm. No free fluid. No evidence of biliary dilatation. Common bile duct measures 6 mm, previously 12 mm. ASSESSMENT: 70 y/o M admitted for choledocolethiasis, gallstone pancreatitis, LLE cellulitis, acute proctitis with LE hematoma. PLAN: 1. LLE cellulitis s/p fall. Warmth, tenderness improving. C/w doxycycline (Day 4 out of 7-10 days) 2. LLE hematoma. Stable, not increased in size. Monitoring closely due to INR 2.25 (naturally anticoagulated due to liver cirrhosis). 3. Gallstone pancreatitis likely secondary to choledocolitiathiasis. No pain, on diet. Repeat US abd above, showing further improvement. No longer doing ERCP. Continue to monitor. 4. Proctitis. Completed two days of Zosyn. C/w doxycycline PO until 03/11/20 (complete 7 days treatment). Pain resolved, monitor I/O, bowel movements 5. Physical deconditioning 2/2 to problem #1, #2. PT/OT says not safe for home yet, will need home services at discharge. To reevaluate 03/11/20. 6. LIU cirrhosis, advanced. Hx of hemachromatosis, INR still elevated. AST/ALT/alk phos all improving. High T bili not suspected to be elevated from liver disease but hematoma. GI following. 7. Urinary retention. Removed llamas 03/05/20, voiding well. 8. Thombocytopenia, chronic. likely 2/2 to cirrhosis. PLTs 88, no new signs of acute bleeding. F/u daily CBC 9. DVT px. INR >2 from cirrhosis. NO SCDs or compression stocking on LLE. DISPOSITION: Admitted under inpatient status. Plan is to discharge home with home services when cleared by PT/OT. He currently lives with his girlfriend. VS, I&O, 24H, Fishbone Vital Signs/I&O Vital Signs Date Time Temp Pulse Resp B/P (MAP) Pulse Ox O2 Delivery O2 Flow Rate FiO2 03/10/20 14:00 98.2 68 18 126/72 (90) 95 Room Air I&O- Last 24 Hours up to 6 AM 03/10/20 06:00 Intake Total 920 ml Output Total 1950 ml Balance -1030 ml Laboratory Data 24H LABS Laboratory Tests 2 03/10/20 06:42: Nucleated Red Blood Cells % (auto) 0.0, Immature Platelet Fraction 2.4, Anion Gap 7L, Glomerular Filtration Rate > 60.0, Calcium Level 7.7L, Total Bilirubin 6.3H, Aspartate Amino Transf (AST/SGOT) 42H, Alanine Aminotransferase (ALT/SGPT) 29, Alkaline Phosphatase 113, Total Protein 4.9L, Albumin 2.1L, Albumin/Globulin Ratio 0.75L CBC/BMP Laboratory Tests 03/10/20 06:42 Microbiology Microbiology 03/05/20 Urine Culture - Final, Complete Enterococcus Faecalis 03/05/20 Blood Culture - Preliminary, Resulted No Growth after 72 hours. All specime... 03/05/20 Blood Culture - Preliminary, Resulted No Growth after 72 hours. All specime... Current Medications Current Medications Medications (Trade) Dose Ordered Sig/Saad Route PRN Reason Start Time Stop Time Status Last Admin Dose Admin Acetaminophen (Tylenol Tab) 650 mg Q4H PRN PO PAIN OR FEVER 03/05/20 20:45 Ceftriaxone Sodium 1 gm/ Dextrose 50 ml @ 100 mls/hr Q24H IV 03/05/20 21:00 03/05/20 21:06 DC Cyclobenzaprine HCl (Flexeril) 10 mg QHS PO 03/06/20 21:00 03/09/20 20:37 Doxycycline Hyclate (Vibramycin) 100 mg BID PO 03/07/20 21:00 03/11/20 23:00 03/10/20 10:05 Folic Acid (Folic Acid) 1 mg DAILY PO 03/06/20 09:00 03/10/20 10:05 Heparin Sodium (Porcine) (Heparin) 5,000 units Q12H SQ 03/06/20 09:00 03/06/20 18:22 DC Home Med (Med Rec Complete!) ASDIRECTED XX 03/05/20 21:45 03/05/20 21:38 DC Lactobacillus Acidophilus (Bacid) 1 ea BIDWM PO 03/08/20 08:00 03/10/20 10:05 Lactulose (Cephulac) 30 ml TID PO 03/06/20 09:00 03/10/20 10:05 Magnesium Hydroxide (Milk Of Magnesia) 30 ml DAILY PRN PO CONSTIPATION 03/05/20 20:45 Magnesium Sulfate/ Dextrose 1 gm/IV Miscellaneous Supplies 100 ml @ 100 mls/hr 0030,0130,2330 IV 03/05/20 23:30 03/06/20 04:00 DC 03/06/20 02:40 Metoprolol Tartrate (Lopressor) 25 mg BID PO 03/06/20 09:00 03/10/20 10:07 Metronidazole 500 mg/IV Miscellaneous Supplies 100 ml @ 100 mls/hr Q8H IV 03/05/20 21:00 03/05/20 21:06 DC Morphine Sulfate (Morphine Sulfate Inj) 2 mg Q6H PRN IV PAIN 03/05/20 21:00 Omeprazole (PriLOSEC) 40 mg DAILY PO 03/06/20 09:00 03/10/20 10:05 Piperacillin Sod/ Tazobactam Sod 3.375 gm/Dextrose 50 ml @ 50 mls/hr Q6H IV 03/05/20 23:00 03/07/20 08:50 DC 03/07/20 04:16 Piperacillin Sod/ Tazobactam Sod 3.375 gm/Dextrose 50 ml @ 50 mls/hr Q6H IV 03/07/20 12:00 03/07/20 15:45 DC 03/07/20 13:30 Piperacillin Sod/ Tazobactam Sod 3.375 gm/Dextrose 50 ml @ 50 mls/hr Q6H IV 03/07/20 17:00 03/07/20 19:55 DC 03/07/20 16:40 Rifaximin (Xifaxan) 550 mg BID PO 03/06/20 09:00 03/10/20 10:05 Sodium Chloride 1,000 ml @ 60 mls/hr [id number] IV 03/05/20 21:00 03/08/20 08:08 DC 03/06/20 23:05 Sodium Chloride 1,000 ml @ 60 mls/hr [id number] IV 03/08/20 08:30 03/08/20 09:42 DC Thiamine HCl (Thiamine HCl) 100 mg DAILY PO 03/06/20 09:00 03/10/20 10:05 Tramadol HCl (Ultram) 50 mg Q6HP PRN PO MODERATE PAIN (PS 5-7) 03/05/20 21:00 Vancomycin HCl 500 mg/Dextrose 110 ml @ 110 mls/hr Q8H IV 03/07/20 18:00 03/08/20 10:15 DC 03/08/20 10:00 Vancomycin HCl 750 mg/IV Miscellaneous Supplies 1 each/ Dextrose 275 ml @ 275 mls/hr Q8H IV 03/07/20 19:00 03/08/20 10:15 DC 03/08/20 03:16 Allergies Coded Allergies: No Known Allergies (Verified Allergy, Unknown, 03/05/20) Gely Laughlin MD Mar 10, 2020 15:33
[2020-03-10] MEDS: CYCLOBENZAPRINE 10MG TABLET PO SCH (20:25)
[2020-03-10 22:00] VITALS: BP 122/71
--- NOTE | 2020-03-10 22:31 | GIPN ---
[facility] GI Progress Note GI Progress Note DATE: Mar 09, 2020 Interval history: Patient was noted to have advanced liver cirrhosis, wtih chronically elevated bilirubin levels at baseline ( Around 4), and recently had fall with large he matoma in left leg, which is contributing to elevated Bilirubin levels. Patient reprots no further abdominal pain and is able to tolerate oral diet. Patient was given Vitamin K to correct coagulopathy but continues to have INR > 2. On exam: Vital: afebrile, no tahycardia, normal BP. General: Has scheral icterus, AAO x 3, (on home medications of lactulose and rifaximin.). Abdomen: Soft, non distended, non tender, no rigity or guarding, normal bowel sounds. Left lower extremity - swelling slightly improved.. Impression: - Abnormal liver tests with prior known Liu cirrhosis/ hemachromatosis , with elevated lactic acid and elevated INR, prior hepatic encephalopathy -- Likely advanced liver disease from cirrhosis., less likely from CBD stone. IN view of clinical symptoms and stone 4mm in past MRCP, likely passed CBD stone. - Liver cirrhosis, CTP C , MELD- Na 22, with prior Hepatic encephalopathy, no prior EGD in [facility], Minimal lily-hepatic ascites, likely etiology of cirrhosis - LIU or Hemochromatosis. Recommendations: - Patient educated about the test results, possible differential diagnoses and All questions answered. - Repeat ultrasound abdomen was done to evaluate for CBD- noted improved CBD diameter ( detailed report in [place]). - Advance diet as tolerated. - Management of leg hematoma as per primary team. - Patient is educated about the advanced liver cirrhosis and need for Liver transplant evaluation. Patient refused liver transplant referral. - As no prior EGD, patient is recommended elective EGD evalaute for esophageal varices and EUS to evalaute CBD stones ( if possible both at the same time). Unfortunately EUS is not available in [facility], so patient can follow up with his primary GI or be referred to [facility] electively. - Continue all home medications, inclduing Lactulose and rifaximin. - Due to improving bilirubin levels, improved CBD diameter with clinical resolution of symptoms, patient at this time appears to have passed the CBD stone. Discussed the risks and benefits of the ERCP procedure and patient refused the procedure. Routine care for Liver cirrhosis: 1) Alcohol cessation/abstinence. Alcohol consumption worsens liver disease even in small quantities when you have underlying cirrhosis. 2) Hepatocellular cancer screening: Twice yearly -- ultrasound and AFP level. 3) Esophageal Variceal screening: At least every 3 years if not taking nonselective beta kasia. 4) Vaccination: Hepatitis A, hepatitis B and pneumococcal vaccine if not taken before. Yearly influenza vaccine. 5) Bone health: Bone density every 3 years and measurement of vitamin D level twice yearly. 6) Nutrition: Low sodium ( <2gm/day) diet and high-protein diet ( 1.6 gm/ kg body weight). Patients with encephalopathy, benefit from protein snack in the evening. 7) Medications to avoid: Benzodiazepines, NSAIDs, sedating medications. Use opioids only when absolutely necessary. 8) Tylenol <2gm/day dose is safe in cirrhotic patients who do not consume alcohol. 9) Patient with prior encephalopathy should be on lactulose (with or without rifaximin) and must have 1-2 soft or loose bowel movements daily. Plan of care discussed with patient and primary team. Patient verbalized understanding and agreed with the plan Allergies Coded Allergies: No Known Allergies (Verified Allergy, Unknown, 03/05/20) Current Medications Current Medications Medications (Trade) Dose Ordered Sig/Saad Route PRN Reason Start Time Stop Time Status Last Admin Dose Admin Acetaminophen (Tylenol Tab) 650 mg Q4H PRN PO PAIN OR FEVER 03/05/20 20:45 Ceftriaxone Sodium 1 gm/ Dextrose 50 ml @ 100 mls/hr Q24H IV 03/05/20 21:00 03/05/20 21:06 DC Cyclobenzaprine HCl (Flexeril) 10 mg QHS PO 03/06/20 21:00 03/10/20 20:25 Doxycycline Hyclate (Vibramycin) 100 mg BID PO 03/07/20 21:00 03/11/20 23:00 03/10/20 20:27 Folic Acid (Folic Acid) 1 mg DAILY PO 03/06/20 09:00 03/10/20 10:05 Heparin Sodium (Porcine) (Heparin) 5,000 units Q12H SQ 03/06/20 09:00 03/06/20 18:22 DC Home Med (Med Rec Complete!) ASDIRECTED XX 03/05/20 21:45 03/05/20 21:38 DC Lactobacillus Acidophilus (Bacid) 1 ea BIDWM PO 03/08/20 08:00 03/10/20 18:06 Lactulose (Cephulac) 30 ml TID PO 03/06/20 09:00 03/10/20 20:25 Magnesium Hydroxide (Milk Of Magnesia) 30 ml DAILY PRN PO CONSTIPATION 03/05/20 20:45 Magnesium Sulfate/ Dextrose 1 gm/IV Miscellaneous Supplies 100 ml @ 100 mls/hr 0030,0130,2330 IV 03/05/20 23:30 03/06/20 04:00 DC 03/06/20 02:40 Metoprolol Tartrate (Lopressor) 25 mg BID PO 03/06/20 09:00 03/10/20 20:25 Metronidazole 500 mg/IV Miscellaneous Supplies 100 ml @ 100 mls/hr Q8H IV 03/05/20 21:00 03/05/20 21:06 DC Morphine Sulfate (Morphine Sulfate Inj) 2 mg Q6H PRN IV PAIN 03/05/20 21:00 03/10/20 15:34 DC Omeprazole (PriLOSEC) 40 mg DAILY PO 03/06/20 09:00 03/10/20 10:05 Piperacillin Sod/ Tazobactam Sod 3.375 gm/Dextrose 50 ml @ 50 mls/hr Q6H IV 03/05/20 23:00 03/07/20 08:50 DC 03/07/20 04:16 Piperacillin Sod/ Tazobactam Sod 3.375 gm/Dextrose 50 ml @ 50 mls/hr Q6H IV 03/07/20 12:00 03/07/20 15:45 DC 03/07/20 13:30 Piperacillin Sod/ Tazobactam Sod 3.375 gm/Dextrose 50 ml @ 50 mls/hr Q6H IV 03/07/20 17:00 03/07/20 19:55 DC 03/07/20 16:40 Rifaximin (Xifaxan) 550 mg BID PO 03/06/20 09:00 03/10/20 20:26 Sodium Chloride 1,000 ml @ 60 mls/hr [id number] IV 03/05/20 21:00 03/08/20 08:08 DC 03/06/20 23:05 Sodium Chloride 1,000 ml @ 60 mls/hr [id number] IV 03/08/20 08:30 03/08/20 09:42 DC Thiamine HCl (Thiamine HCl) 100 mg DAILY PO 03/06/20 09:00 03/10/20 10:05 Tramadol HCl (Ultram) 50 mg Q6HP PRN PO MODERATE PAIN (PS 5-7) 03/05/20 21:00 Vancomycin HCl 500 mg/Dextrose 110 ml @ 110 mls/hr Q8H IV 03/07/20 18:00 03/08/20 10:15 DC 03/08/20 10:00 Vancomycin HCl 750 mg/IV Miscellaneous Supplies 1 each/ Dextrose 275 ml @ 275 mls/hr Q8H IV 03/07/20 19:00 03/08/20 10:15 DC 03/08/20 03:16 VS,Fishbone, I+O VS, Fishbone, I+O Laboratory Tests 03/10/20 06:42 Vital Signs Date Time Temp Pulse Resp B/P (MAP) Pulse Ox O2 Delivery O2 Flow Rate FiO2 03/10/20 20:25 74 122/71 03/10/20 14:00 98.2 18 95 Room Air I&O- Last 24 Hours up to 6 AM 03/10/20 06:00 Intake Total 920 ml Output Total 1950 ml Balance -1030 ml RALPH SOLITARIO MD Mar 10, 2020 22:15
[2020-03-11 06:00] VITALS: BP 114/69
[2020-03-11 06:17] LABS: HEMATOCRIT 30.7 % (42.0-52.0); HEMOGLOBIN 10.4 g/dl (13.5-17.5); MEAN CORPUSCULAR HEMOGLOBIN 38.8 pg (27.0-33.0); MEAN CORPUSCULAR HGB CONC 33.9 g/dl (32.0-36.5); RED BLOOD COUNT 2.68 10^6/uL (4.30-6.10); WHITE BLOOD COUNT 5.6 10^3/uL (4.0-10.0)
[2020-03-11 06:22] LABS: MEAN CORPUSCULAR VOLUME 114.6 fl (80.0-96.0); PLATELET COUNT, AUTOMATED 83 10^3/uL (150-450)
[2020-03-11 06:26] LABS: INR 2.33; PROTHROMBIN TIME 25.4 SECONDS (11.8-14.0)
[2020-03-11 06:40] LABS: ALBUMIN 1.9 GM/DL (3.2-5.2); ALT/SGPT 33 U/L (12-78); BILIRUBIN,TOTAL 5.4 MG/DL (0.2-1.0); BLOOD UREA NITROGEN 6 MG/DL (7-18); CALCIUM LEVEL 7.5 MG/DL (8.8-10.2); CARBON DIOXIDE LEVEL 28 MEQ/L (21-32); CHLORIDE LEVEL 108 MEQ/L (98-107); CREATININE FOR GFR 0.58 MG/DL (0.70-1.30); GLOMERULAR FILTRATION RATE > 60.0 (>49); GLUCOSE, FASTING 83 MG/DL (70-100); POTASSIUM SERUM 3.7 MEQ/L (3.5-5.1); SODIUM LEVEL 143 MEQ/L (136-145); TOTAL PROTEIN 4.9 GM/DL (6.4-8.2)
[2020-03-11] MEDS: LACTULOSE 20 GM/30 ML SYRUP UD PO SCH (09:00)
[2020-03-11] MEDS: rifAXIMin 550 MG TAB (XIFAXAN) PO SCH (09:07)
[2020-03-11] MEDS: FOLIC ACID 1 MG TAB PO SCH (09:07)
[2020-03-11] MEDS: LACTOBACILLUS ACIDOPHILUS CAP (BACID) PO SCH (09:07)
[2020-03-11] MEDS: THIAMINE 100 MG TAB PO SCH (09:07)
[2020-03-11] MEDS: DOXYCYCLINE HYCLATE 100MG TABLET PO SCH (09:07)
[2020-03-11] MEDS: OMEPRAZOLE 20 MG CAP PO SCH (09:07)
[2020-03-11 09:09] VITALS: BP 116/73
[2020-03-11] MEDS: METOPROLOL TART 25 MG TABLET PO SCH (09:09)
[2020-03-11] MEDS ORDERED: DOXY100T PO ×2 (11:00→11:41)
[2020-03-11] MEDS ORDERED: ACET1TAB55 PO (11:00)
[2020-03-11] MEDS ORDERED: PROB1CAP10 PO (11:41)
[2020-03-11 14:00] VITALS: BP 145/71
--- NOTE | 2020-03-11 16:42 | DS.PDOC ---
Discharge Summary General Date of Admission Mar 05, 2020 at 21:10 Date of Discharge 03/11/20 Attending Physician: Gely Laughlin MD Discharge Summary HPI: This is a 70 yo M poor-historian, reported history of LIU cirrhosis diagnosed last year managed by PCP, chronically on Lactulose & Rifaximin. He is a direct transfer from [facility] for GI intervention for possible ERCP. He initially presented to [facility] for decreased appetite and constant dull abd pain worse on the right flank, nonradiating, without aggravating or alleviating factors. His symptoms began 1 week ago and have been gradually worsening since then. He also noted increased jaundice and pale-appearing stools. He admits to having missed doses of medication, but unsure how long and which medications were missed. His labs at that time revealed lactate 4.5, ammonia 112, T. Bili 9.9, D. Bili 3.7, AST/ALT 51/36, Alk [id number], Lipase 720. WBC 7.3, nml H&H. In [facility], CT abd/pelvis revealed: Small amount of ascites. No hepatic mass or biliary dilatation. Gallstones and gallbladder distention without gallbladder wall thickening. Inflammatory changes adjacent to the rectum consistent with proctitis. Sigmoid colon diverticulosis without diverticulitis. 3.2 cm abdominal aortic aneurysm without aneurysmal rupture. MRCP noted: mild CBD dilatation up to 9.7 mm, 4 mm calculus in the distal CBD. No intrahepatic biliary dilatation or hepatic mass or pancreatic mass or pancreatitis. Cirrhotic changes of liver with ascites. Gallstones and gallbladder distention without gallbladder wall thickening or pericholecystic inflammation. He received IVF & Ceftriaxone & Flagyl x1 doses, and thereafter directly admitted to [facility] for further care. On admission, he has no complaints besides continued right sided abd pain. Is noted to be resting comfortably in bed and hemodynamically stable. Has no other complaints. GI has been consulted; Dr. Gu will arrange for ERCP. Of note, he was reportedly at [facility] just a week prior after sustaining a mechanical fall at home and per the pt, imaging was negative for fracture and dislocation. Pt reports he was sent home to monitor the left leg, which no longer hurts him, but is noted to have significant bruising. He also reports he had urinary retention and was sent home with a Llamas catheter to f/u outpatient with Urology, which he has not done yet. Patient was admitted to [facility] for further management of his multiple complicated medical conditions. HOSPITAL COURSE: During his hospital stay, GI followed closely. The patient's INR was elevated naturally secondary to cirrhosis and he was given 3 doses of oral vitamin K to help bring it down. This did not help much. Clinically the patient's abdominal pain resolved on its own, likely secondary to common iliac artery duct stone passing on its own. Ultrasound of the abdomen showed later that the common bile duct had decreased by almost half confirming suspicions of stone passing. Biliary markers remain slightly elevated; however, hyperbilirubinemia was not solely secondary to liver condition. He was diagnosed with having a large left lower extremity hematoma as well. ERCP was held off on due to improvement of patient's abdominal pain. The patient was diagnosed with left lower extremity cellulitis and initially started on IV vancomycin but later transitioned over to oral doxycycline which covered both cellulitis and proctitis. The patient denied any rectal pain during his hospitalization with us. The patient performed poorly with physical therapy initially but later, after several sessions, showed improvement. With improvement of all abdominal symptoms and with conditioning, the decision was made to discharge on 03/11/2020 with home health services for physical therapy. Patient is discharged home with oral probiotics and doxycycline to complete a 10 day course for his left lower extremity cellulitis. 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 He is encouraged to follow-up with his primary care provider as scheduled. At the time of discharge the patient denied abdominal pain, nausea, vomiting, fevers, chills, left lower extremity pain or shortness of breath. 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 bili still elevated. Repeat US abdomen showed decreased CBD dilation to 6mm from 12 mm. Patient likely passed stone and has no abdominal pain. Overall improving slowly, possible d/c after weekend. Patient denies n/v/d, shortness of breath, fevers or chills. . OBJECTIVE General exam: A&O x3, NAD, resting comfortably HEENT: NCAT, EOMI, scleral icterus present, dry mucous membranes, neck supple Cardiac: RRR, normal S1 & S2, 2/6 systolic murmur, no edema Respiratory: CTAB, good air exchange, no w/r/r Abdomen: soft, ND, normoactive bowel sounds, no appreciable masses or splenomegaly. Nontender. No rebound, guarding, rigidity Extremity: 2+ radial & dorsalis pedis pulses, tenderness LLE- warmth and erythema further decreased. PT pulse strong bilaterally. Skin: warm, dry, no visible rash. Jaundice improving slowly. 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 Slow to answer, but answers accurately LABORATORY DATA: Please see below ACTIVE MEDICATIONS: Please see below IMAGING: US abd: Mild distention of the gallbladder, which contains stones and sludge. Gallbladder wall thickening 6 mm. No free fluid. No evidence of biliary dilatation. Common bile duct measures 6 mm, previously [address] LLE: There is a relatively large soft tissue hematoma in the lower leg as described above. Etiology is likely trauma, however, it should be correlated clinically with appropriate followup. Doppler LLE: No evidence of deep vein thrombosis. ASSESSMENT: 70 y/o M admitted for choledocolethiasis, gallstone pancreatitis, LLE cellulitis, acute proctitis with LE hematoma. PLAN: 1. LLE cellulitis s/p fall. Warmth, tenderness improving. Decreased swelling. C/w doxycycline (Day 5 out of 7-10 days), probiotic. 2. LLE hematoma. Stable, not increased in size. INR 2.25 (naturally anticoagulated due to liver cirrhosis) has not effected size. 3. Gallstone pancreatitis likely secondary to choledocolitiathiasis. Since resolved, likely passed stone in bile duct naturally. No pain, on diet. Repeat US abd above, showing further improvement. GI recommending o/p EGD and ultimately EUS with patient's own GI provider. 4. Proctitis. Completed two days of Zosyn. Completed 7 day course doxycycline today. Pain resolved, good bowel movements. 5. Physical deconditioning 2/2 to problem #1, #2. PT/OT as o/p. 6. LIU cirrhosis, advanced. Hx of hemachromatosis, INR still elevated. AST/ALT/alk phos all improving. High T bili not suspected to be elevated from liver disease but hematoma. GI as o/p. 7. Urinary retention. Removed llamas 03/05/20, voiding well. 8. Thombocytopenia, chronic likely 2/2 to cirrhosis. No new signs of acute bleeding. 9. Elevated INR 2/2 to liver cirrhosis. Naturally anticoagulating. To be monitored by PCP, gastroenterology. DISPOSITION: Discharged home in improved condition today. Has f/u with both PCP and needs to touch base with GI that he already sees. Advised to bring discharge paperwork with him. TIME SPENT ON DISCHARGE: 25 minutes. Vital Signs/I&Os Vital Signs Date Time Temp Pulse Resp B/P (MAP) Pulse Ox O2 Delivery O2 Flow Rate FiO2 03/11/20 14:00 98.2 75 16 145/71 (95) 96 Room Air I&O- Last 24 Hours up to 6 AM 03/11/20 05:59 Intake Total 840 ml Output Total 2125 ml Balance -1285 ml Laboratory Data Labs 24H Laboratory Tests 2 03/11/20 05:41: Nucleated Red Blood Cells % (auto) 0.0, Prothrombin Time 25.4H, Prothromb Time International Ratio 2.33, Anion Gap 7L, Glomerular Filtration Rate > 60.0, Calcium Level 7.5L, Total Bilirubin 5.4H, Aspartate Amino Transf (AST/SGOT) 55H, Alanine Aminotransferase (ALT/SGPT) 33, Alkaline Phosphatase 123H, Total Protein 4.9L, Albumin 1.9L, Albumin/Globulin Ratio 0.63L CBC/BMP Laboratory Tests 03/11/20 05:41 Microbiology Microbiology 03/05/20 Urine Culture - Final, Complete Enterococcus Faecalis 03/05/20 Blood Culture - Final, Complete NO GROWTH AFTER 5 DAYS 03/05/20 Blood Culture - Final, Complete NO GROWTH AFTER 5 DAYS Discharge Medications Scheduled Amlodipine Besylate/Benazepril (Lotrel 10-20 mg Capsule) 1 Each Capsule, 1 CAP PO DAILY, (Reported) Cyclobenzaprine HCl (Cyclobenzaprine HCl) 10 Mg Tablet, 10 MG PO QHS, (Reported) Doxycycline Hyclate (Doxycycline Hyclate) 100 Mg Tablet, 100 MG PO BID Esomeprazole Magnesium (Esomeprazole Magnesium) 40 Mg Capsule.dr, 40 MG PO DAILY, (Reported) Ezetimibe (Ezetimibe) 10 Mg Tablet, 10 MG PO DAILY, (Reported) Furosemide (Furosemide) 20 Mg Tablet, 20 MG PO DAILY, (Reported) Lactobacillus Acidophilus (Probiotic Acidophilus) 1.5 Mg Capsule, 1 CAP PO BID Lactulose (Lactulose) 10 Gm/15 Ml Solution, 30 ML PO TID, (Reported) Metoprolol Tartrate (Metoprolol Tartrate) 25 Mg Tablet, 25 MG PO BID, (Reported) Potassium Chloride (Potassium Chloride) 10 Meq Tab.er.prt, 20 MEQ PO DAILY, (Reported) Rifaximin (Xifaxan) 550 Mg Tablet, 550 MG PO BID, (Reported) Scheduled PRN Acetaminophen (Acetaminophen) 325 Mg Tablet, 650 MG PO Q8HP PRN for PAIN OR FEVER Allergies Coded Allergies: No Known Allergies (Verified Allergy, Unknown, 03/05/20) Gely Laughlin MD Mar 11, 2020 16:42
== END 2020-03-11 15:23 | disposition home health service (06) | DRG 444 ==
LOC: M MSPAV 21:10
PROVIDERS: ADMIT Internal Medicine; ATTEND Internal Medicine
DX: K80.70 Calculus of gallbladder and bile duct without cholecystitis without obstruction (principal); K85.10 Biliary acute pancreatitis without necrosis or infection; L03.116 Cellulitis of left lower limb; E87.2 Acidosis; K75.81 Nonalcoholic steatohepatitis (NASH); K74.60 Unspecified cirrhosis of liver; S80.12XA Contusion of left lower leg, initial encounter; E83.119 Hemochromatosis, unspecified; W18.30XA Fall on same level, unspecified, initial encounter; Y92.009 Unspecified place in unspecified non-institutional (private) residence as the place of occurrence of the external cause; K62.89 Other specified diseases of anus and rectum; D69.6 Thrombocytopenia, unspecified; R33.9 Retention of urine, unspecified; Z79.899 Other long term (current) drug therapy; K21.9 Gastro-esophageal reflux disease without esophagitis; R29.6 Repeated falls; E83.42 Hypomagnesemia

== ENCOUNTER 2021-08-14 05:49 | Inpatient (IN) | payer MEDICARE, MEDICAID ==
[~2021-08-14] VITALS: Ht 193 cm; Wt 122.9 kg
[2021-08-14] VITALS (11 sets, daily range): BP systolic 55–79; BP diastolic 24–50
[~2021-08-14 05:49] MED LIST: ACET1TAB55 PO; CYCL-707 PO; DOXY100T PO; ESOM1CAP5 PO; EZET10TA21 PO; FURO20TA2 PO; LACT20EL PO; LOTR10CA PO; METO25TA4 PO; POTA10TA16 PO; PROB1CAP10 PO; XIFA550T PO
[2021-08-14] MEDS ORDERED: NS 3,690 ML in IV 1 EA IV ONE (06:25)
[2021-08-14] MEDS ORDERED: PIPERACILLIN/TAZOBACTAM SOD 4.5 GM in D5W MINI-BAG PLUS 50 ML IV ONE (06:25)
[2021-08-14 06:33] LABS: MEAN CORPUSCULAR HEMOGLOBIN 39.8 pg (27.0-33.0); MEAN CORPUSCULAR HGB CONC 30.3 g/dl (32.0-36.5); RED BLOOD COUNT 1.08 10^6/uL (4.30-6.10); WHITE BLOOD COUNT 8.1 10^3/uL (4.0-10.0)
[2021-08-14 06:51] LABS: ALBUMIN 1.3 GM/DL (3.2-5.2); BILIRUBIN,DIRECT 2.9 MG/DL (0.0-0.2); BILIRUBIN,TOTAL 7.2 MG/DL (0.2-1.0); CALCIUM LEVEL 7.8 MG/DL (8.8-10.2); CREATININE FOR GFR 3.08 MG/DL (0.70-1.30); GLOMERULAR FILTRATION RATE 21.5 (>49); MB/CK RELATIVE INDEX 2.11 (< OR =4); POTASSIUM SERUM 4.1 MEQ/L (3.5-5.1); THYROID STIMULATING HORMONE 4.77 uIU/ML (0.358-3.740); TOTAL PROTEIN 3.7 GM/DL (6.4-8.2); TROPONIN I 0.03 NG/ML (< 0.10)
[2021-08-14 07:11] LABS: HEMATOCRIT 14.2 % (42.0-52.0); HEMOGLOBIN 4.3 g/dl (13.5-17.5); MEAN CORPUSCULAR VOLUME 131.5 fl (80.0-96.0)
[2021-08-14 07:12] LABS: PLATELET COUNT, AUTOMATED 79 10^3/uL (150-450)
[2021-08-14 07:18] LABS: ANISOCYTOSIS 1+; ATYPICAL LYMPH 1 % (0-5); BASOPHILS 2 % (0-1); LYMPHOCYTES 11 % (16-44); MONOCYTES 8 % (0-5); NEUTROPHILS 78 % (28-66); PLATELET ESTIMATE DECREASED (NORMAL)
[2021-08-14 07:19] LABS: BURR CELLS 1+; OVALOCYTES 1+
[2021-08-14 07:33] LABS: PROTHROMBIN TIME 69.4 SECONDS (12.7-14.5)
[2021-08-14 07:34] LABS: PARTIAL THROMBOPLASTIN TIME 78.8 SECONDS (25.9-37.0)
--- NOTE | 2021-08-14 08:00 | ECGEPIP ---
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
--- NOTE | 2021-08-14 08:09 | REPVR ---
PROCEDURE INFORMATION: Exam: CT Head Without Contrast Exam date and time: 08/14/2021 6:56 AM Age: 71 years old Clinical indication: Altered mental status/memory loss; Confusion or disorientation; Additional info: Fall, bruising TECHNIQUE: Imaging protocol: Computed tomography of the head without contrast. Radiation optimization: All CT scans at this facility use at least one of these dose optimization techniques: automated exposure control; mA and/or kV adjustment per patient size (includes targeted exams where dose is matched to clinical indication); or iterative reconstruction. COMPARISON: No relevant prior studies available. FINDINGS: Brain: There is no acute intracranial hemorrhage or mass effect. Moderate diffuse volume loss is within the range of normal for patient age. There are small vessel ischemic changes within the periventricular and subcortical white matter, but the normal brown-white matter delineation is maintained. Cerebral ventricles: No ventriculomegaly. Paranasal sinuses: Visualized sinuses are unremarkable. No fluid levels. Mastoid air cells: Visualized mastoid air cells are well aerated. Bones/joints: Unremarkable. No acute fracture. Soft tissues: Unremarkable. IMPRESSION: No acute hemorrhage or calvarial fracture. Electronically signed by: Saritha Ha On 08/14/2021 08:09:11 AM
[2021-08-14 08:16] LABS: INR 8.46
--- NOTE | 2021-08-14 08:17 | REPVR ---
PROCEDURE INFORMATION: Exam: CT Cervical Spine Without Contrast Exam date and time: 08/14/2021 6:56 AM Age: 71 years old Clinical indication: Neck pain; Additional info: Fall, bruising TECHNIQUE: Imaging protocol: Computed tomography images of the cervical spine without contrast. Radiation optimization: All CT scans at this facility use at least one of these dose optimization techniques: automated exposure control; mA and/or kV adjustment per patient size (includes targeted exams where dose is matched to clinical indication); or iterative reconstruction. COMPARISON: No relevant prior studies available. FINDINGS: Bones/joints: There is 2 mm of grade 1 anterolisthesis of C4 with respect to C5. Normal vertebral body alignment is otherwise preserved. Vertebral body heights are within normal limits. Discs/Spinal canal/Neural foramina: There is severe intervertebral disc space loss at C6/7. There is multilevel facet hypertrophy. Lungs: Lung apices are normal. Soft tissues: Unremarkable. IMPRESSION: No acute fracture. Electronically signed by: Saritha Ha On 08/14/2021 08:16:35 AM
[2021-08-14] MEDS ORDERED: PHYTONADIONE 10MG/ML INJECTION (J3430) SC ONE (08:20)
--- NOTE | 2021-08-14 08:32 | REPVR ---
PROCEDURE INFORMATION: Exam: CT Abdomen And Pelvis Without Contrast Exam date and time: 08/14/2021 6:56 AM Age: 71 years old Clinical indication: Other: Bruising; Additional info: Fall, bruising TECHNIQUE: Imaging protocol: Computed tomography of the abdomen and pelvis without contrast. Radiation optimization: All CT scans at this facility use at least one of these dose optimization techniques: automated exposure control; mA and/or kV adjustment per patient size (includes targeted exams where dose is matched to clinical indication); or iterative reconstruction. COMPARISON: Abdomen, limited US 03/10/2020 9:33 AM (report not provided) FINDINGS: Limitations: Evaluation is somewhat limited by lack of IV contrast. There is also streak artifact from patient's arms by his sides, as well as mild motion. Liver: The liver is shrunken with a nodular contour, compatible with cirrhosis. Gallbladder and bile ducts: The gallbladder contains multiple stones. Pancreas: Grossly unremarkable. Spleen: Grossly unremarkable. Adrenal glands: Grossly unremarkable. Kidneys and ureters: The left kidney contains a 3.6 cm simple cyst. It appears otherwise grossly unremarkable. The right kidney contains a punctate nonobstructing stone. It appears grossly unremarkable. No hydronephrosis or ureteral calculus. Stomach and bowel: Neither the stomach nor the small bowel are significantly distended or grossly thickwalled. There is mild descending and sigmoid colonic diverticulosis without evidence for diverticulitis. Appendix: The appendix appears normal. Intraperitoneal space: There is no free air. Moderate ascites is present. Vasculature: The abdominal aorta is nonaneurysmal. Atherosclerotic vascular calcifications are noted. Lymph nodes: No gross pathologic lymphadenopathy. Urinary bladder: The urinary bladder is decompressed by Hernandez catheter. Reproductive: Unremarkable as visualized. Bones/joints: Degenerative changes involve the spine and hips. The bones appear osteopenic. No acute fracture of the visualized skeleton is identified. Soft tissues: There is moderate diffuse subcutaneous edema. IMPRESSION: 1. No gross evidence for acute intra-abdominal or pelvic injury on this unenhanced exam. 2. Cirrhotic liver with moderate ascites. 3. Moderate diffuse subcutaneous edema. 4. Cholelithiasis. 5. Punctate nonobstructing right renal stone without hydronephrosis. 6. Mild left-sided colonic diverticulosis without evidence for diverticulitis. COMMENTS: 1. Dedicated chest CT has been performed, and findings above the diaphragm will be reported separately. 2. Consistent with the [employer]'s Incidental Findings Committee white paper (J Am Kaur Radiol 2018): Any incidental renal lesion less than 1 cm or classified as too small to characterize, or any incidental cystic renal lesion characterized as simple-appearing, is likely benign. No follow-up imaging is recommended for these lesions per consensus recommendations based on imaging criteria. Electronically signed by: Juventino Jackson On 08/14/2021 08:32:42 AM
--- NOTE | 2021-08-14 08:39 | REPVR ---
PROCEDURE INFORMATION: Exam: CT Chest Without Contrast; Diagnostic Exam date and time: 08/14/2021 6:56 AM Age: 71 years old Clinical indication: Other: Bruising; Additional info: Fall, bruising TECHNIQUE: Imaging protocol: Diagnostic computed tomography of the chest without contrast. Radiation optimization: All CT scans at this facility use at least one of these dose optimization techniques: automated exposure control; mA and/or kV adjustment per patient size (includes targeted exams where dose is matched to clinical indication); or iterative reconstruction. COMPARISON: None provided. FINDINGS: Limitations: Evaluation is somewhat limited by lack of IV contrast. There is also streak artifact from patient's arms by his sides. Lungs: The lungs demonstrate mild upper lobe predominant centrilobular emphysematous disease. Mild dependent atelectasis is present bilaterally. A 5 mm nodule is present laterally in the right lower lobe (image [id number]). The lungs are otherwise clear. Pleural spaces: There are trace bilateral pleural effusions. No pneumothorax. Heart: A small pericardial effusion is present. Aorta: The thoracic aorta is nonaneurysmal. Other arteries: Coronary artery calcifications are noted. Lymph nodes: No gross pathologic lymphadenopathy. Diaphragm: Some fluid adjacent to the esophagus in the lower chest appears to relate to a hiatal hernia. Bones/joints: Degenerative changes involve the spine and shoulders. No acute fracture of the visualized skeleton is identified. Soft tissues: Mild to moderate subcutaneous edema is present throughout the chest. Other findings: Atherosclerotic vascular calcifications are noted. Relative low density in the blood pool suggests anemia. The central airways appear patent. IMPRESSION: 1. No gross evidence for acute intrathoracic injury on this unenhanced exam. 2. Very small bilateral pleural effusions. 3. Small pericardial effusion. 4. Findings suggesting anemia. 5. Mild upper lobe predominant emphysematous disease. 6. 5 mm right lower lobe nodule. For patients at low risk (minimal or absent history of smoking and of other known risk factors), no routine follow-up is indicated. For patients at high risk (history of smoking or of other known risk factors), consider optional CT Chest at 12 months. (Reference: Antonette) 7. Fluid adjacent to the esophagus in the lower chest, apparently related to a hiatal hernia. 8. Mild to moderate subcutaneous edema. COMMENTS: See separate abdominal CT report for findings below the diaphragm. REFERENCES: Antonette Valentine, et al. Guidelines for Management of Incidental Pulmonary Nodules Detected on CT Images: From the Fleischner Society 2017. Radiology. 2017;284(1):228-243. Electronically signed by: Juventino Jackson On 08/14/2021 08:39:53 AM
[2021-08-14 08:55] LABS: RSV AMPLIFICATION NEGATIVE (NEGATIVE)
[2021-08-14] MEDS ORDERED: PANTOPRAZOLE 40MG VIAL (C9113 PER 1) IV SCH (09:00)
[2021-08-14] MEDS ORDERED: PHYTONADIONE 5 MG TAB PO ONE (09:00)
[2021-08-14] MEDS ORDERED: ASPI81TA26 PO (09:37)
[2021-08-14] MEDS ORDERED: MECL-86 PO (09:37)
[2021-08-14] MEDS ORDERED: FOLI400T5 PO (09:37)
[2021-08-14] MEDS ORDERED: IRON325T2 PO (09:37)
[2021-08-14] MEDS ORDERED: IBUP1TAB6 PO (09:37)
[2021-08-14] MEDS ORDERED: VITA500T41 PO (09:37)
[2021-08-14] MEDS ORDERED: CEPH500C PO (09:37)
[2021-08-14] MEDS ORDERED: MILK175T PO (09:37)
[2021-08-14] MEDS ORDERED: HOME MED LIST COMPLETE! XX SCH (09:40)
[2021-08-14] MEDS ORDERED: OCTREOTIDE ACETATE 100MCG/ML VIAL (J2354 PER 25MCG) IV SCH (10:00)
[2021-08-14] MEDS ORDERED: NOREPINEPHRINE BITARTRATE 8 MG in D5W 492 ML IV SCH (10:00)
[2021-08-14] MEDS ORDERED: NS 1,000 ML IV ONE ×2 (10:15→11:55)
[2021-08-14 11:10] LABS: PARTIAL THROMBOPLASTIN TIME 104.9 SECONDS (25.9-37.0); PROTHROMBIN TIME 101.6 SECONDS (12.7-14.5)
[2021-08-14 11:20] LABS: FIBRINOGEN 64 MG/DL (268-480)
[2021-08-14 11:21] LABS: INR 13.94
[2021-08-14 11:26] LABS: D-DIMER QUANT > 4000 ng/ml (<500)
[2021-08-14] MEDS ORDERED: MIDODRINE 5 MG TAB PO SCH (12:00)
[2021-08-14] MEDS ORDERED: PIPERACILLIN/TAZOBACTAM SOD 2.25 GM in D5W MINI-BAG PLUS 50 ML IV SCH (13:00)
[2021-08-14] MEDS ORDERED: VASOPRESSIN INJ 20 UNITS in NS 500 ML IV SCH (13:00)
--- NOTE | 2021-08-14 14:28 | HPEPDOC ---
[facility] Medical History & Physical Date of Admission Aug 14, 2021 Date of Service: Aug 14, 2021 History and Physical CHIEF COMPLAINT: Altered mental status, fall x 2 HISTORY OF PRESENT ILLNESS: (Could not be obtained due to altered mental status. Obtained from medical records and pt's hcp Melissa Sharp.) 71-year-old DO NOT RESUSCITATE, DO NOT INTUBATE male with history of nonalcoholic steatohepatitis induced liver cirrhosis, prior CBD stone in February 2020, hemochromatosis, dyslipidemia, hypertension, gastroesophageal reflux disease complained of left arm pain and swelling about a week ago and was started on Eliquis, and admitted to [facility] in [place] due to decompensated liver failure and was treated for 6 days and discharged home, still edematous. Patient complained of "I feel like I stepped on a mud pool., " with persistent anasarca, bilateral lower extremity edema with skin tears, and weeping serous sanguinous liquid from his right lower extremity without erythema, tenderness, fever, or chills. He complained of cough productive of white sputum, increasing shortness of breath, generalized weakness, gait instability, increased confusion, difficulty concentrating, and had 2 falls at h ome without head trauma. Patient has had decrease in urine output, so his long- term partner Melissa Sharp brought him to [facility] emergency room for evaluation. [facility] ER recommended the patient to be transferred to [facility] but patient left AGAINST MEDICAL ADVICE. He continued to have increased lethargy and unresponsiveness, prompting his partner to call the ambulance to be evaluated at [facility] today. Patient was brought in by ambulance was found to be hypothermic, minimally responsive, with temperature of 93, hypotensive with systolic pressure 67 mmHg, INR of 8, and hemoglobin of 4. Patient's partner denies seeing any bright red blood per rectum melena black tarry stools coffee-ground emesis or hematemesis at home. CT head showed no intracranial hemorrhage, CT chest no pulmonary edema, infiltrate or pneumonia, and CT abdomen and pelvis: Liver cirrhosis minimal ascites, cholelithiasis. Hospitalist was asked to admit the patient for hypotension, acute decompensated liver cirrhosis with coagulopathy, nonobstructive jaundice due to liver failure, acute kidney injury stage IV renal failure, acute hepatic encephalopathy with elevated ammonia level due to liver failure, and severe anemia with hemoglobin of 4. Cloth Reeler on-call, Dr. Stewart, reviewed the case and concluded that the patient fulminant liver failure secondary to liver cirrhosis without obstructive choledocholithiasis. Patient will be admitted as an inpatient for 2 midnights in the intensive care unit. 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 REVIEW OF SYSTEMS: PATIENT IS UNRESPONSIVE. REVIEW OF SYSTEM OULD NOT BE OBTAINED DUE TO ACUTE ENCEPHALOPATHY . HOME MEDICATIONS: Please see below. PHYSICAL EXAMINATION: VITAL SIGNS: See below GENERAL APPEARANCE: Jaundiced unresponsive Anasarca does not follow commands HEENT: Icteric dry mucous membranes CARDIOVASCULAR: S1-S2 regular rate rhythm LUNGS: Diminished bilateral crackles ABDOMEN: Distended positive fluid wave positive bowel sounds no hepatosplenomegaly soft nontender EXTREMITIES: Anasarca 3+ edema bilateral lower extremities skin tears right lower extremity NEUROLOGICAL: Minimally responsive not following commands negative Babinski bilaterally Withdraws to painful stimuli. LABORATORY DATA: See below. IMAGING: See below MICROBIOLOGY: Please see below. ASSESSMENT: 71-year-old DO NOT RESUSCITATE, DO NOT INTUBATE male with history of nonalcoholic steatohepatitis induced liver cirrhosis, prior CBD stone in February 2020, hemochromatosis, dyslipidemia, hypertension, gastroesophageal reflux disease complained of left arm pain and swelling about a week ago and was started on Eliquis, and admitted to [facility] in [place] due to decompensated liver failure and was treated for 6 days and discharged home, still edematous. Patient complained of "I feel like I stepped on a mud pool., " with persistent anasarca, bilateral lower extremity edema with skin tears, and weeping serous sanguinous liquid from his right lower extremity without erythema, tenderness, fever, or chills. He complained of cough productive of white sputum, increasing shortness of breath, generalized weakness, gait ins tability, increased confusion, difficulty concentrating, and had 2 falls at home without head trauma. Patient has had decrease in urine output, so his long-term partner Melissa Sharp brought him to [facility] emergency room for evaluation. [facility] ER recommended the patient to be transferred to [facility] but patient left AGAINST MEDICAL ADVICE. He continued to have increased lethar gy and unresponsiveness, prompting his partner to call the ambulance to be evaluated at [facility] today. Patient was brought in by ambulance was found to be hypothermic, minimally responsive, with temperature of 93, hypotensive with systolic pressure 67 mmHg, INR of 8, and hemoglobin of 4. Patient's partner denies seeing any bright red blood per rectum melena black tarry stools coffee-ground emesis or hematemesis at home. CT head showed no intracranial hemorrhage, CT chest no pulmonary edema, infiltrate or pneumonia, and CT abdomen and pelvis: Liver cirrhosis minimal ascites, cholelithiasis. Hospitalist was asked to admit the patient for hypotension, acute decompensated liver cirrhosis with coagulopathy, nonobstructive jaundice due to liver failure, acute kidney injury stage IV renal failure, acute hepatic encephalopathy with elevated ammonia level due to liver failure, and severe anemia with hemoglobin of 4. Cloth Reeler on-call, Dr. Stewart, reviewed the case and concluded that the patient fulminant liver failure secondary to liver cirrhosis without obstructive choledocholithiasis. Patient will be admitted as an inpatient for 2 midnights in the intensive care unit. Acute decompensated liver cirrhosis with loss of synthetic function MELD SCORE 40 -As evidenced by significant coagulopathy, encephalopathy due to elevated ammonia level, elevated bilirubin, anasarca with decreased effective circulating volume causing acute renal failure. -CT abdomen and pelvis shows no obstructive choledocholithiasis as a cause of the hyperbilirubinemia -Supportive care with fresh frozen plasma, vitamin K, lactulose, IVZosyn which has been renally dosed to cover gram-negative bacteria, Levophed and vasopressin intravenous drip to keep a mean arterial pressure of 65, midodrine if no signs of aspiration, octreotide, Protonix. Acute metabolic encephalopathy/hepatic encephalopathy -Secondary to fulminant liver failure with coagulopathy, elevated ammonia level, anasarca, and acute kidney injury. Glucose within normal limits -Poor overall prognosis despite maximal supportive therapy with vasopressors Levophed and vasopressin, IV fluid boluses, RBC and albumin transfusions, IV Zosyn, and fresh frozen plasma. -Lactulose enema due to altered mental status and aspiration risk Coagulopathy with INR of 8 with repeat of 13.94 -Due to decompensated liver cirrhosis with loss of synthetic function -Despite fresh frozen plasma and vitamin K repeat INR was 13.94 indicative of f ulminant hepatic failure. Hypovolemic shock -On vasopressor therapy with Levophed and vasopressin status post 3 units RBC transfusion, 425% albumin transfusion, 2 L of IV fluids. -Rule out septic shock, check blood culture and urine culture, and empirically start on IV Zosyn. -Continue IV fluid boluses to keep mean arterial pressure at 65 Symptomatic anemia hemoglobin of 4 -Without overt GI bleed. -Transfuse RBC and fresh frozen plasma -Goal hemoglobin of greater than 8 -PPI IV twice daily Acute kidney injury stage IV/hepatorenal syndrome with fulminant hepatic failure -Despite IV fluids, red blood cell and albumin transfusion, vasopressor therapy with Levophed and vasopressin IV drip, patient continues to have decreased in effective circulating volume. -Started on octreotide. 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 Vital Signs Vital Signs Date Time Temp Pulse Resp B/P (MAP) Pulse Ox O2 Delivery O2 Flow Rate FiO2 08/14/21 12:30 97.0 61 18 74/26 85 Nasal Cannula 3.0 Laboratory Data Labs 24H Laboratory Tests 2 08/14/21 06:04: Neutrophils (%) (Auto) , Nucleated Red Blood Cells % (auto) 0.0, Neutrophils 78H, Lymphocytes (Manual) 11L, Monocytes (Manual) 8H, Basophils (Manual) 2H, Atypical Lymphocytes 1, Anisocytosis 1+, Macrocytosis 4+, Ovalocytes 1+, Jakob Cells 1+, Platelet Estimate DECREASED, Immature Platelet Fraction 4.6, Anion Gap 23H, Glomerular Filtration Rate 21.5L, Lactic Acid Level 14.8*H, Calcium Level 7.8L, Total Bilirubin 7.2H, Direct Bilirubin 2.9H, Aspartate Amino Transf (AST/ SGOT) 112H, Alanine Aminotransferase (ALT/SGPT) 55, Alkaline Phosphatase 102, Total Creatine Kinase 332H, Creatine Kinase MB 7.0H, Creatine Kinase MB Relative Index 2.11, Troponin I 0.03, Total Protein 3.7L, Albumin 1.3L, Albumin/Globulin Ratio 0.5, Thyroid Stimulating Hormone (TSH) 4.770H 08/14/21 06:06: Urine Color YEISON, Urine Appearance HAZY, Urine pH 5.0, Urine Specific Harrah 1.016, Urine Protein NEGATIVE, Urine Glucose (UA) 1+H, Urine Ketones TRACEH, Urine Blood NEGATIVE, Urine Nitrite NEGATIVE, Urine Bilirubin NEGATIVE, Urine Urobilinogen 2.0H, Urine Leukocyte Esterase NEGATIVE, Urine WBC (Auto) 2, Urine RBC (Auto) 2, Urine Hyaline Casts (Auto) 0, Urine Bacteria (Auto) NEGATIVE, Urine Squamous Epithelial Cells 0, Urine Amorphous Sediment SMALLH, Urine Mucus (Auto) SMALL, Urine Sperm (Auto) 08/14/21 07:10: Prothrombin Time 69.4H, Prothromb Time International Ratio 8.46*H, Activated Partial Thromboplast Time 78.8H 08/14/21 07:56: Coronavirus (COVID-19)(PCR) NEGATIVE, Influenza Type A (RT-PCR) NEGATIVE, Influenza Type B (RT-PCR) NEGATIVE, Respiratory Syncytial Virus (PCR) NEGATIVE 08/14/21 10:44: Prothrombin Time 101.6H, Prothromb Time International Ratio 13.94*H, Activated Partial Thromboplast Time 104.9H, Fibrinogen 64L, D-Dimer, Quantitative > 4000H, Lactic Acid Followup at 4 Hours 16.9*H CBC/BMP Laboratory Tests 08/14/21 06:04 08/14/21 10:44 Home Medications Scheduled Amlodipine Besylate/Benazepril (Lotrel 10-20 mg Capsule) 1 Each Capsule, 1 CAP PO QHS Aspirin (Aspirin EC) 81 Mg Tablet.dr, 81 MG PO DAILY Cephalexin (Cephalexin) 500 Mg Capsule, 500 MG PO QID Cyanocobalamin (Vitamin B-12) (Vitamin B-12) 500 Mcg Tablet, 500 MCG PO DAILY Esomeprazole Magnesium (Esomeprazole Magnesium) 40 Mg Capsule.dr, 40 MG PO DAILY Ezetimibe (Ezetimibe) 10 Mg Tablet, 10 MG PO QHS Ferrous Sulfate (Iron) 325 Mg Tablet, 325 MG PO DAILY Folic Acid (Folic Acid) 0.4 Mg Tablet, 400 MCG PO DAILY Furosemide (Furosemide) 20 Mg Tablet, 20 MG PO TID Lactulose (Lactulose) 10 Gm/15 Ml Solution, 30 ML PO TID Meclizine HCl (Meclizine HCl) 25 Mg Tablet, 25 MG PO TID Metoprolol Tartrate (Metoprolol Tartrate) 25 Mg Tablet, 25 MG PO BID Milk Thistle (Milk Thistle) 175 Mg Tablet, 175 MG PO DAILY Rifaximin (Xifaxan) 550 Mg Tablet, 550 MG PO BID Scheduled PRN Ibuprofen (Ibuprofen) 600 Mg Tablet, 600 MG PO Q6H PRN for PAIN LEVEL 1-5 Allergies Coded Allergies: No Known Allergies (Verified Allergy, Unknown, 03/05/20) Opioids - Morphine Analogues (Verified Adverse Reaction, Unknown, SEVERE ANGER, 08/14/21) A-FIB/CHADSVASC A-FIB History Current/History of A-Fib/PAF?: No Current PO Anticoag Therapy: No Age/Risk Factor Scoring CHADSVASC: CHADSVASC Response (Comments) Value Age Risk Factor Age 65-74 years old 1 Gender Risk Factor Male 0 Hx of CHF No 0 Hx of HTN Yes 1 Hx of Stroke/TIA/or VTE No 0 Hx of Diabetes No 0 Hx of Vascular Disease No 0 Total 2 Treatment Treatment ordered: NONE BISHOP NORMAN MD Aug 14, 2021 13:21
[2021-08-14] MEDS ORDERED: PHENYLEPHRINE HCL INJ 50 MG in D5W 495 ML IV SCH (14:30)
[2021-08-14] MEDS ORDERED: SCOPOLAMINE 1MG TRANSDERMAL PATCH TOP SCH (15:30)
[2021-08-14] MEDS ORDERED: LORazepam 2 MG/ML VIAL IV PRN (15:30)
[2021-08-14] MEDS ORDERED: MORPHINE 2 MG/ML 1ML VIAL (J2270) IV PRN (15:30)
[2021-08-14] MEDS ORDERED: ONDANSETRON 4MG/2ML VIAL IV PRN (15:35)
--- NOTE | 2021-08-14 16:42 | RO ---
OPERATIVE NOTE DATE OF OPERATION: 08/14/2021 REASON FOR CONSULTATION: Stat line placement. PREOPERATIVE DIAGNOSIS: Anemia, hypotension. POSTOPERATIVE DIAGNOSIS: Anemia, hypotension. PROCEDURE: Ultrasound-guided cannulation of left femoral artery, left femoral vein with arterial line placement and triple-lumen tunneled central line catheter placement. SURGEON: Dr. Frausto ENTHONE SOLDER STRIPPER: None. ANESTHESIA: None. COMPLICATIONS: None. INDICATION FOR PROCEDURE: Patient is a 71-year-old male in liver failure, currently supratherapeutic on his INR with anemia and hypotension, unable to respond to questions at this time. He needs access for blood pressure monitoring, and for multiple IV medications. PROCEDURE: The left groin was prepped and draped with chlorhexadine. Next, under US guidance the left femoral artery and vein were visualized and were on top of each other. I Inserted the first needle and obtained pulsatile bright red blood. I then placed the guidewire without any resistance and removed the needle. I was then able to place the a-line catheter over the guidewire and removed the wire. I capped off the catheter, and then using US again just proximal and medial to this catheter I placed another needle and obtained dark blood. I passed the guidewire and then removed the catheter. I then used the 11 blade scalpel to make a small jose g in the skin and then passed the dilater over the wire. Dilator was then removed and the TLC was placed and wire removed. The catheter was then flushed and capped, and then both catheters were sutured in place with silk suture thus ending the procedure. David Frausto DO /verified/ml DESCRIPTION OF PROCEDURE: FINESSE
--- NOTE | 2021-08-14 18:35 | DS.PDOC ---
Discharge Summary General Date of Admission Aug 14, 2021 at 08:39 Date of Discharge 08/14/21 AT 1621 WITH FAMILY AT THE BEDSIDE COMFORT MEASURES ONLY, DNR/DNI Discharge Summary PROCEDURES PERFORMED DURING STAY:triple lumen catheter placement, arterial line placement PLATFORM MATERIAL HANDLING SUPERVISOR: DR. ES WHALEN, GENERAL SURGEON DR. TRACY STEWART, HOISTMAN-CASE REVIEWED. DISCHARGE DIAGNOSES: Fulminant Hepatic Failure Acute Decompensated Liver cirrhosis anasarca Portal hypertension Acute metabolic Encephalopathy Ascites Symptomatic Anemia s/p 2u rbc transfusion Acute Hepatic Encephalopathy Coagulopathy due to hepatic failure and eliquis s/p vitamin k, ffp Hepatorenal syndrome acute kidney injury Left UE DVT Hypovolemic Shock requiring iv levophed gtt, vasopressin iv gtt, s/p ivf boluses, albumin infusions Recurrent mechanical falls Hemochromatosis History of LIU Hypothermia HISTORY OF PRESENT ILLNESS: (Could not be obtained due to altered mental status. Obtained from medical records and pt's hcp Melissa Sharp.) 71-year-old DO NOT RESUSCITATE, DO NOT INTUBATE male with history of non alcoholic steatohepatitis induced liver cirrhosis, prior CBD stone in February 2020, hemochromatosis, dyslipidemia, hypertension, gastroesophageal reflux disease complained of left arm pain and swelling about a week ago and was started on Eliquis, and admitted to [facility] in [place] due to decompensated liver failure and was treated for 6 days and discharged home, still edematous. Patient complained of "I feel like I stepped on a mud pool., " with persistent anasarca, bilateral lower extremity edema with skin tears, and weeping serous sanguinous liquid from his right lower extremity without erythema, tenderness, fever, or chills. He complained of cough productive of white sputum, increasing shortness of breath, generalized weakness, gait instability, increased confusion, difficulty concentrating, and had 2 falls at home without head trauma. Patient has had decrease in urine output, so his long-term partner Melissafabien Sharp brought him to [facility] emergency room for evaluation. [facility] ER recommended the patient to be transferred to [facility] but patient left AGAINST MEDICAL ADVICE. He continued to have increased lethargy and unresponsiveness, prompting his partner to call the ambulance to be evaluated at [facility] today. Patient was brought in by ambulance was found to be hypothermic, minimally responsive, with temperature of 93, hypotensive with systolic pressure 67 mmHg, INR of 8, and hemoglobin of 4. Patient's partner denies seeing any bright red blood per rectum melena black tarry stools coffee-ground emesis or hematemesis at home. CT head showed no intracranial hemorrhage, CT chest no pulmonary edema, infiltrate or pneumonia, and CT abdomen and pelvis: Liver cirrhosis minimal ascites, cholelithiasis. Hospitalist was asked to admit the patient for hypotension, acute decompensated liver cirrhosis with coagulopathy, nonobstructive jaundice due to liver failure, acute kidney injury stage IV renal failure, acute hepatic encephalopathy with elevated ammonia level due to liver failure, and severe anemia with hemoglobin of 4. Dice Dealer on-call, Dr. Stewart, reviewed the case and concluded that the patient fulminant liver fa ilure secondary to liver cirrhosis without obstructive choledocholithiasis. Patient will be admitted as an inpatient for 2 midnights in the intensive care unit. HOSPITAL COURSE: Acute decompensated liver cirrhosis with loss of synthetic function MELD SCORE 40 -As evidenced by significant coagulopathy, encephalopathy due to elevated ammonia level, elevated bilirubin, anasarca with decreased effective circulating volume causing acute renal failure. -CT abdomen and pelvis shows no obstructive choledocholithiasis as a cause of the hyperbilirubinemia -Supportive care with fresh frozen plasma, vitamin K, lactulose, IVZosyn which has been renally dosed to cover gram-negative bacteria, Levophed and vasopressin intravenous drip to keep a mean arterial pressure of 65, midodrine if no signs of aspiration, octreotide, Protonix. -Despite iv vasopressors, ivfluid boluses, iv albumin, vitamin k, ffp, rbc transfusion, iv zosyn, pt remained hypotensive, and family / HCP decided on [facility]. Acute metabolic encephalopathy/hepatic encephalopathy -Secondary to fulminant liver failure with coagulopathy, elevated ammonia level, anasarca, and acute kidney injury. Glucose within normal limits -Poor overall prognosis despite maximal supportive therapy with vasopressors Levophed and vasopressin, IV fluid boluses, RBC and albumin transfusions, IV Zosyn, and fresh frozen plasma. -Lactulose enema due to altered mental status and aspiration risk -CT head : negative -Family opted for [facility] due to failed response to supportive care. Coagulopathy with INR of 8 with repeat of 13.94 -Due to decompensated liver cirrhosis with loss of synthetic function -Despite fresh frozen plasma and vitamin K repeat INR was 8 indicative of fulminant hepatic failure. Hypovolemic shock -On vasopressor therapy with Levophed and vasopressin status post 3 units RBC transfusion, 425% albumin transfusion, 2 L of IV fluids. -Rule out septic shock, check blood culture and urine culture, and empirically started on IV Zosyn. 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 Hypothermia -possible septic shock -treated with empiric iv zosyn, ivfluids, iv levophed iv vasopressin. phenylephrine not started due to family requesting anhydrous ammonia production supervisor. Symptomatic anemia hemoglobin of 4 -Without overt GI bleed. -Transfused 2units RBC and fresh frozen plasma -Goal hemoglobin of greater than 8 -PPI IV twice daily Acute kidney injury stage IV/hepatorenal syndrome with fulminant hepatic failure -Despite IV fluids, red blood cell and albumin transfusion, vasopressor therapy with Levophed and vasopressin IV drip, patient continues to have decreased in effective circulating volume. -Started on octreotide. -Strict I's and O's Daily weights, Hernandez catheter Lactic acidosis -due to hypoperfusion from hypovolemic shock and possible septic shock. h/o hemochromatosis -with liver cirrhosis dyslipidemia -chronic gastroesophageal reflux disease -on ppi diet: npo aspiration risk code: dnr/dni dvt prophylaxis: none due to coagulopathy inr 8 Due to poor overall prognosis, and no response to maximal medical therapy with 2 vasopressors, family has opted for [facility]. pt expires with family at the bedside. Vital Signs/I&Os Vital Signs Date Time Temp Pulse Resp B/P (MAP) Pulse Ox O2 Delivery O2 Flow Rate FiO2 08/14/21 14:20 96.5 59 24 79/29 91 Nasal Cannula 3.0 Laboratory Data Labs 24H Laboratory Tests 2 08/14/21 05:58: Bedside Glucose (Misc Panel) 112 08/14/21 06:04: Neutrophils (%) (Auto) , Nucleated Red Blood Cells % (auto) 0.0, Neutrophils 78 H, Lymphocytes (Manual) 11L, Monocytes (Manual) 8H, Basophils (Manual) 2H, Atypical Lymphocytes 1, Anisocytosis 1+, Macrocytosis 4+, Ovalocytes 1+, Jakob Cells 1+, Platelet Estimate DECREASED, Immature Platelet Fraction 4.6, Anion Gap 23H, Glomerular Filtration Rate 21.5L, Lactic Acid Level 14.8*H, Calcium Level 7.8L, Total Bilirubin 7.2H, Direct Bilirubin 2.9H, Aspartate Amino Transf (AST/SGOT) 112H, Alanine Aminotransferase (ALT/SGPT) 55, Alkaline Phosphatase 102, Total Creatine Kinase 332H, Creatine Kinase MB 7.0H, Creatine Kinase MB Relative Index 2.11, Troponin I 0.03, Total Protein 3.7L, Albumin 1.3L, Albumin/Globulin Ratio 0.5, Thyroid Stimulating Hormone (TSH) 4.770H 08/14/21 06:06: Urine Color YEISON, Urine Appearance HAZY, Urine pH 5.0, Urine Specific [place] 1 .016, Urine Protein NEGATIVE, Urine Glucose (UA) 1+H, Urine Ketones TRACEH, Urine Blood NEGATIVE, Urine Nitrite NEGATIVE, Urine Bilirubin NEGATIVE, Urine Urobilinogen 2.0H, Urine Leukocyte Esterase NEGATIVE, Urine WBC (Auto) 2, Urine RBC (Auto) 2, Urine Hyaline Casts (Auto) 0, Urine Bacteria (Auto) NEGATIVE, Urine Squamous Epithelial Cells 0, Urine Amorphous Sediment SMALLH, Urine Mucus (Auto) SMALL, Urine Sperm (Auto) 08/14/21 07:10: Prothrombin Time 69.4H, Prothromb Time International Ratio 8.46*H, Activated Partial Thromboplast Time 78.8H 08/14/21 07:56: Coronavirus (COVID-19)(PCR) NEGATIVE, Influenza Type A (RT-PCR) NEGATIVE, Influenza Type B (RT-PCR) NEGATIVE, Respiratory Syncytial Virus (PCR) NEGATIVE 08/14/21 10:44: Prothrombin Time 101.6H, Prothromb Time International Ratio 13.94*H, Activated Partial Thromboplast Time 104.9H, Fibrinogen 64L, D-Dimer, Quantitative > 4000H, Lactic Acid Followup at 4 Hours 16.9*H CBC/BMP Laboratory Tests 08/14/21 06:04 08/14/21 10:44 FSBS Laboratory Tests Test 08/14/21 05:58 Range/Units Bedside Glucose (Misc Panel) 112 80-115 MG/DL Discharge Medications No Active Prescriptions or Reported Meds Allergies Coded Allergies: No Known Allergies (Verified Allergy, Unknown, 03/05/20) Opioids - Morphine Analogues (Verified Adverse Reaction, Unknown, SEVERE ANGER, 08/14/21) BISHOP NORMAN MD Aug 14, 2021 16:52
== END 2021-08-14 16:21 | disposition expired | DRG 441 ==
LOC: M ED 05:49 → M ED INP 08:39 → ENRESERV 13:24 → M ICU 14:37
PROVIDERS: ADMIT General Practice; ATTEND General Practice
PROC: 30233N1 Transfusion of Nonautologous Red Blood Cells into Peripheral Vein, Percutaneous Approach (ICD-10-PCS; principal; 2021-08-14)
PROC: 30233L1 Transfusion of Nonautologous Fresh Plasma into Peripheral Vein, Percutaneous Approach (ICD-10-PCS; 2021-08-14)
DX: K72.00 Acute and subacute hepatic failure without coma (principal); G93.41 Metabolic encephalopathy; R65.21 Severe sepsis with septic shock; N17.9 Acute kidney failure, unspecified; E87.2 Acidosis; D68.32 Hemorrhagic disorder due to extrinsic circulating anticoagulants; K76.6 Portal hypertension; K75.81 Nonalcoholic steatohepatitis (NASH); R57.1 Hypovolemic shock; Z66 Do not resuscitate; I10 Essential (primary) hypertension; K21.9 Gastro-esophageal reflux disease without esophagitis; R68.0 Hypothermia, not associated with low environmental temperature; E78.5 Hyperlipidemia, unspecified; D64.9 Anemia, unspecified